=== PATIENT | female | born 1955 | race Caucasian/White ===

== ENCOUNTER 2018-03-18 00:47 | Emergency (ER) | payer MEDICARE, MEDICAID ==
--- NOTE | 2018-03-18 01:23 | EDM.PDOC ---
ED HPI GENERAL MEDICAL PROBLEM - General Chief Complaint: Trauma Stated Complaint: FALL VIA NORTH Time Seen by Provider: 03/18/18 01:13 Source of Information: Reports: Patient, EMS, RN Notes Reviewed History Limitations: Reports: No Limitations - History of Present Illness INITIAL COMMENTS - FREE TEXT/NARRATIVE: 62-year-old female presents to the emergency department via EMS services for trauma at home, she fell down 2 steps she believes she tripped and hit her head not sure if she lost consciousness she is complaining of neck pain, left shoulder pain, left foot and ankle pain. Does have a history of neck fracture in the past Treatments SHIPPING RECEIVING MANAGER: Reports: IV/IO, Other (see below) Other Treatments SHIPPING RECEIVING MANAGER: Dilaudid 0.5mg IVP Left Shoulder Pain Score (Numeric/FACES): 6 Posterior Neck Pain Score (Numeric/FACES): 4 Posterior Occipital Pain Score (Numeric/FACES): 5 Right Hip Pain Score (Numeric/FACES): 4 Left Ankle Pain Score (Numeric/FACES): 6 - Related Data Allergies Allergy/AdvReac Type Severity Reaction Status Date / Time amoxicillin Allergy Other Verified 03/18/18 01:03 bee venom protein (honey bee) Allergy Other Verified 03/18/18 01:03 cefuroxime [From Ceftin] Allergy Other Verified 03/18/18 01:03 ciprofloxacin Allergy Other Verified 03/18/18 01:03 doxorubicin [From Adriamycin] Allergy Other Verified 03/18/18 01:03 erythromycin base Allergy Other Verified 03/18/18 01:03 Penicillins Allergy Other Verified 03/18/18 01:03 sulfamethoxazole Allergy Other Verified 03/18/18 01:03 tetracycline Allergy Other Verified 03/18/18 01:03 trimethoprim [From Bactrim] Allergy Other Verified 03/18/18 01:03 Home Meds: Home Meds Acetaminophen [Tylenol Extra Strength] 1,000 mg PO TID PRN 02/18/18 [History] Albuterol [Ventolin HFA] 2 puff INH Q6H PRN 02/18/18 [History] Aspirin 81 mg PO DAILY 02/18/18 [History] Budesonide/Formoterol [Symbicort 160-4.5 MCG] 2 puff INH BID 02/18/18 [History] Calcium Carbonate/Vitamin D3 [Calcium 600 + Vit D Tablet] 1 tab PO BID 02/18/18 [History] DULoxetine [Cymbalta] 60 mg PO BID 02/18/18 [History] Diclofenac Sodium [Voltaren] 1 strip TOP QID PRN 02/18/18 [History] EPINEPHrine [Epinephrine] 0.3 mg SQ ASDIRECTED PRN 02/18/18 [History] LORazepam 0.5 mg PO TID PRN 02/18/18 [History] Lactobacill 46/B.animal/Inulin [Probiotic-10 10 Bill Cell Cap] 1 cap PO DAILY [History] Levothyroxine 75 mcg PO DAILY 02/18/18 [History] Lisinopril 20 mg PO DAILY 02/18/18 [History] Menthol/Methyl Salicylate [Icy Hot] 1 strip TOP QID PRN 02/18/18 [History] Omeprazole 20 mg PO DAILY 02/18/18 [History] Polyethylene Glycol 3350 [Miralax] 17 gm PO DAILY PRN 02/18/18 [History] Prazosin HCl [Prazosin] 2 mg PO BEDTIME 02/18/18 [History] Ranitidine HCl [Ranitidine] 150 mg PO BID 02/18/18 [History] Simvastatin [Zocor] 40 mg PO BEDTIME 02/18/18 [History] cloZAPine 75 mg PO BEDTIME 02/18/18 [History] hydrOXYzine pamoate [Hydroxyzine Pamoate] 25 mg PO TID PRN 02/18/18 [History] metFORMIN HCl [Metformin HCl] 1,000 mg PO BID 02/18/18 [History] traZODone 200 mg PO BEDTIME 02/18/18 [History] Past Medical History Other Musculoskeletal History: bilateral shoulder pain Social & Family History - Tobacco Use Smoking Status *Q: Light Tobacco Smoker Years of Tobacco use: 30 Packs/Tins Daily: 0.5 Second Hand Smoke Exposure: Yes - Caffeine Use Caffeine Use: Reports: Coffee, Soda - Recreational Drug Use Recreational Drug Use: No Review of Systems - Review of Systems Review Of Systems: See Below Constitutional: Reports: No Symptoms Eyes: Reports: No Symptoms Ears: Reports: No Symptoms Nose: Reports: No Symptoms Mouth/Throat: Reports: No Symptoms Respiratory: Reports: No Symptoms Cardiovascular: Reports: No Symptoms GI/Abdominal: Reports: No Symptoms Genitourinary: Reports: No Symptoms Musculoskeletal: Reports: Neck Pain, Shoulder Pain, Joint Pain Skin: Reports: No Symptoms Neurological: Reports: No Symptoms ED EXAM, GENERAL - Physical Exam Exam: See Below Free Text/Narrative:: Primary survey GCS of 15 airway is open patent clear lungs are clear to auscultation bilaterally cardiovascular demonstrates regular rate and rhythm S1 and S2 Secondary survey General: Female, not in any distress, GCS of 15, alert and oriented x3 HEENT: head is atraumatic normocephalic, eyes pupils equal round reactive to light, sclera clear no conjunctivitis appreciated extraocular eye movements intact. Ears tympanic membranes clear and archer landmarks and light reflex are present bilaterally canals are clear. Nose no septal deviation, nares are clear, no blood present. Mouth mucosa is moist and pink no erythema or exudate noted in soft palate, tongue is midline uvula is midline, dentition is intact. Neck: C-collar in place, c-collar was opened palpation of the neck revealed pain left paraspinal as well as spinal c-collar was then replaced Nodes: Cervical nodes subclavicular nodes nontender no palpable lymphadenopathy noted. Lungs: clear to auscultation bilaterally with symmetrical respirations, no adventitious noise appreciated. CV: Regular rate and rhythm S1 and S2 appreciated no murmurs rubs or gallops noted. Abdomen: Soft, nontender, no palpable masses or organomegaly appreciated, no distention no guarding bowel sounds are present, ]. Neuro: Cranial nerves II through XII grossly intact Skin: Warm and dry, intact Extremities: There is tenderness over the left shoulder no tenderness the right shoulder no tenderness elbows wrists bilaterally pelvic rock's is negative no tenderness knees bilaterally she is tender over the left ankle and left foot area I don't appreciate any bruising there is no erythema there is no edema noted no tenderness to the right ankle or foot pedal pulse is +2 on the left foot Course - Vital Signs Last Recorded V/S: Last Vital Signs Temp 96.2 F 03/18/18 01:39 Pulse 87 03/18/18 01:39 Resp 14 03/18/18 01:39 BP 132/83 03/18/18 01:39 Pulse Ox 97 03/18/18 01:39 - Orders/Labs/Meds Orders: Active Orders 24 hr Category Date Time Status Ankle Min 3V Lt [CR] Stat Exams 03/18/18 01:17 Taken Cervical Spine wo Cont [CT] Stat Exams 03/18/18 01:17 Taken Foot 2V Lt [CR] Stat Exams 03/18/18 01:17 Taken Head wo Cont [CT] Stat Exams 03/18/18 01:17 Taken Shoulder Comp Lt [CR] Stat Exams 03/18/18 01:17 Taken Meds: Medications Discontinued Medications Generic Name Dose Route Start Last Admin Trade Name Cristine PRN Reason Stop Dose Admin Hydromorphone HCl 0.5 mg 03/18/18 01:18 03/18/18 01:35 Dilaudid IVPUSH 03/18/18 01:19 0.5 mg ONETIME ONE Administration Ketamine HCl 10 mg 03/18/18 01:18 03/18/18 01:27 Ketalar IV 03/18/18 01:19 10 mg NOW STA Administration Departure - Departure Time of Disposition: 03:27 Disposition: Home, Self-Care 01 Condition: Good Clinical Impression: Head injury Qualifiers: Encounter type: initial encounter Qualified Code(s): S09.90XA - Unspecified injury of head, initial encounter Contusion Qualifiers: Encounter type: initial encounter Contusion area: shoulder Laterality: left Qualified Code(s): S40.012A - Contusion of left shoulder, initial encounter - Discharge Information Referrals: PCP,None [Primary Care Provider] - Forms: ED Department Discharge Additional Instructions: Use ibuprofen as needed for pain control, Please followup with your primary care provider in 3-5 days if not better, please call return to the emergency department with worsening of symptoms. - My Orders Last 24 Hours: My Active Orders 03/18/18 01:17 Ankle Min 3V Lt [CR] Stat Cervical Spine wo Cont [CT] Stat Foot 2V Lt [CR] Stat Head wo Cont [CT] Stat Shoulder Comp Lt [CR] Stat - Assessment/Plan Last 24 Hours: My Active Orders 03/18/18 01:17 Ankle Min 3V Lt [CR] Stat Cervical Spine wo Cont [CT] Stat Foot 2V Lt [CR] Stat Head wo Cont [CT] Stat Shoulder Comp Lt [CR] Stat Plan: Assessment Acuity = acute Site and laterality = bone contusion left shoulder and left ankle, head injury Etiology = secondary to a fall Manifestations = none Location of injury = Home Lab values = x-rays foot ankle shoulder I did review films myself I cannot appreciate any acute process, the official read from radiology is pending, CT scan head and neck show no acute process Plan She had good improvement with the pain control with fentanyl provided in emergency department she will use ibuprofen as needed to control pain at home follow-up with primary care 3-5 days if not better This note was dictated using [employer] voice recognition software please call with any questions on syntax or grammar.
[2018-03-18] MEDS: Ketamine 500 MG/5 ML MDV IV STA (01:27)
[2018-03-18] MEDS: HYDROmorphone 0.5 MG/0.5 ML Syringe IVPUSH ONE (01:35)
--- NOTE | 2018-03-18 08:27 | CR ---
Foot 2V Lt HISTORY: Trauma, fall FINDINGS: No acute fracture or dislocation is identified. Bony architecture and joint spaces are preserved. S oft tissues are unremarkable. IMPRESSION: No acute left foot abnormality identified.
--- NOTE | 2018-03-18 08:29 | CR ---
Shoulder Comp Lt HISTORY: Trauma, fall FINDINGS: No acute fracture or dislocation is identified. Bony architecture is preserved. There are prominent degenerative and hypertrophic changes glenohumeral joint left shoulder. AC joint is not widened. Lef t upper chest is clear. Bilateral posterior sunil and pedicle screw fusion lower cervical spine is part ially visualized. Soft tissues are unremarkable. IMPRESSION: Prominent degenerative changes can demonstrate left shoulder. No acute left shoulder abnormality is i dentified.
--- NOTE | 2018-03-18 08:30 | CR ---
Ankle Min 3V Lt HISTORY: Trauma, fall FINDINGS: No acute fracture or dislocation is identified. Bony architecture and ankle mortise are preserved. Soft tissues are unremarkable. IMPRESSION: No acute left ankle abnormality identified.
== END 2018-03-18 09:09 | disposition home or self-care (01) ==
LOC: JP.ED 00:47
DX: S09.90XA Unspecified injury of head, initial encounter (principal); S40.012A Contusion of left shoulder, initial encounter; S90.02XA Contusion of left ankle, initial encounter; F17.210 Nicotine dependence, cigarettes, uncomplicated; Z88.1 Allergy status to other antibiotic agents; Z91.030 Bee allergy status; Z88.0 Allergy status to penicillin; Z88.2 Allergy status to sulfonamides; Z79.82 Long term (current) use of aspirin; Z79.899 Other long term (current) drug therapy; W01.198A Fall on same level from slipping, tripping and stumbling with subsequent striking against other object, initial encounter
CPT/HCPCS: 70450; 72125; 73030; 73610; 73620; 96374; 96375; 99285; J1170

== ENCOUNTER 2019-04-05 05:30 | Day surgery (SDC) | payer MEDICARE, MEDICAID ==
[2019-04-05] MEDS ORDERED: Dextrose 5%-Lactated Ringers 1,000 ML IV SCH (06:30)
[2019-04-05] MEDS ORDERED: Albuterol/Ipratropium 3.0-0.5 MG/3 ML Neb Soln NEB ONE (07:00)
[2019-04-05] MEDS ORDERED: Propofol 200 MG/20 ML SDV ONE ×2 (07:07→07:29)
[2019-04-05] MEDS ORDERED: Midazolam 1 MG/ML 2 ML SDV ONE (07:07)
[2019-04-05] MEDS ORDERED: fentaNYL 100 MCG/2 ML SDV ONE (07:07)
--- NOTE | 2019-04-22 10:41 | OR ---
DATE OF PROCEDURE: 04/05/2019 SURGEON: Jann Nova MD PREOPERATIVE DIAGNOSES: 1. Epigastric pain. 2. Frequent loose bowel movements. POSTOPERATIVE DIAGNOSES: 1. Small hiatal hernia associated with mild gastroesophageal reflux disease. 2. Mild antral gastritis and duodenitis. 3. Grossly normal colonoscopy. OPERATIVE PROCEDURES: 1. Esophagogastroduodenoscopy with: a. Biopsies of esophagogastric junction for histologic evaluation. b. Biopsies of antrum for CLOtest. 2. Flexible colonoscopy with random colorectal biopsies to rule out microscopic colitis. SUMMARY: This is a 63-year-old presenting with symptoms as outlined in the attached record. Plan is to do upper and lower endoscopies with biopsies as indicated. Potential risks including bleeding and perforation were discussed, and the patient wishes to proceed. DESCRIPTION OF PROCEDURE: The patient was taken to the operating room and placed in the left lateral decubitus position. IV sedation was administered, after which the upper GI endoscope was passed orally through the length of the esophagus and into the stomach with retroflexion view of the fundus, and thereafter through the pyloric channel and into the proximal duodenum. Findings included a small hiatal hernia with some mild gastroesophageal reflux disease. There was no stricturing or gross evidence of neoplasia. Within the stomach, there were unremarkable findings in the proximal stomach. There was some mild patchy antral gastritis and duodenitis in duodenal bulb. At this point, biopsies were obtained from the antrum and sent for CLOtest for H. pylori. Multiple biopsies were obtained from esophagogastric junction, sent for histologic evaluation. Minimal bleeding from the biopsy sites was seen and the procedure then concluded. Attention was then taken to the colonoscopy. Initial digital rectal exam was performed, it was unremarkable. Colonoscope was then passed into the rectum with retroflexion revealing uncomplicated hemorrhoidal columns. Scope was eventually passed to the level of the cecum. The prep was fairly good with only a small amount of liquid stool being present. To that level, there were no abnormal findings grossly. Particularly, there were no areas of obvious colitis, diverticular disease, polyps, or other signs of neoplasia. At that point, multiple biopsies were obtained from the colon and rectum throughout its length to rule out microscopic colitis. Minimal bleeding from the biopsy sites was seen, and the procedure was then concluded. There were no evident complications. Jann Nova MD /[id number]
== END 2019-04-05 10:12 | disposition home or self-care (01) ==
LOC: JP.SDS 05:30
PROVIDERS: ATTEND Surgery
DX: K22.70 Barrett's esophagus without dysplasia (principal); K44.9 Diaphragmatic hernia without obstruction or gangrene; K21.9 Gastro-esophageal reflux disease without esophagitis; K29.70 Gastritis, unspecified, without bleeding; K29.80 Duodenitis without bleeding; R19.7 Diarrhea, unspecified; K64.9 Unspecified hemorrhoids; J44.9 Chronic obstructive pulmonary disease, unspecified; F17.200 Nicotine dependence, unspecified, uncomplicated; F32.9 Major depressive disorder, single episode, unspecified; F43.10 Post-traumatic stress disorder, unspecified; Z88.0 Allergy status to penicillin; Z88.1 Allergy status to other antibiotic agents; Z88.8 Allergy status to other drugs, medicaments and biological substances; Z91.030 Bee allergy status
CPT/HCPCS: 43239; 45380; 87081; 88305; 94640; J2250; J2704; J3010; J7042; J7620-GY

== ENCOUNTER 2019-04-06 18:16 | Emergency (ER) | payer MEDICARE, MEDICAID ==
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
== END 2019-04-06 20:43 | disposition home or self-care (01) ==
LOC: JP.ED 18:16
DX: R45.851 Suicidal ideations (principal); I10 Essential (primary) hypertension; E11.9 Type 2 diabetes mellitus without complications; E78.00 Pure hypercholesterolemia, unspecified; J44.9 Chronic obstructive pulmonary disease, unspecified; M19.90 Unspecified osteoarthritis, unspecified site; F32.9 Major depressive disorder, single episode, unspecified; E03.9 Hypothyroidism, unspecified; Z86.2 Personal history of diseases of the blood and blood-forming organs and certain disorders involving the immune mechanism; F17.210 Nicotine dependence, cigarettes, uncomplicated; Z88.1 Allergy status to other antibiotic agents; Z88.8 Allergy status to other drugs, medicaments and biological substances; Z91.030 Bee allergy status; Z79.82 Long term (current) use of aspirin; Z79.84 Long term (current) use of oral hypoglycemic drugs; Z79.899 Other long term (current) drug therapy
CPT/HCPCS: 99284

== ENCOUNTER 2019-10-10 18:08 | Emergency (ER) | payer MEDICARE, MEDICAID ==
--- NOTE | 2019-10-10 19:05 | EDM.PDOC ---
ED HPI GENERAL MEDICAL PROBLEM - General Chief Complaint: Upper Extremity Injury/Pain Stated Complaint: FEVER,INFECTED FINGER Time Seen by Provider: 10/10/19 18:50 Source of Information: Reports: Patient, Family History Limitations: Reports: No Limitations - History of Present Illness INITIAL COMMENTS - FREE TEXT/NARRATIVE: 64-year-old female who has a swollen, reddened and painful index finger on the right hand. She has eczema, gets small cracks on the palmar surface of the fingers, and a small crack in the PIP joint appears to be the source of entry for bacteria. The finger is swollen, reddened, and slightly warm but not fluctuant. She is able to move it but it is painful, she is not febrile. The erythema extends down the finger to the MP joint and slightly over the top of the hand. Onset: Gradual Duration: Day(s): (2 days) Location: Reports: Upper Extremity, Right Associated Symptoms: Reports: Other (Had a few chills earlier) - Related Data Allergies Allergy/AdvReac Type Severity Reaction Status Date / Time amoxicillin Allergy Other Verified 10/10/19 18:46 bee venom protein (honey bee) Allergy Other Verified 10/10/19 18:46 cefuroxime [From Ceftin] Allergy Other Verified 10/10/19 18:46 ciprofloxacin Allergy Other Verified 10/10/19 18:46 doxorubicin [From Adriamycin] Allergy Other Verified 10/10/19 18:46 erythromycin base Allergy Other Verified 10/10/19 18:46 Penicillins Allergy Other Verified 10/10/19 18:46 prednisone Allergy Abdominal Verified 10/10/19 18:46 Pain tetracycline Allergy Other Verified 10/10/19 18:46 trimethoprim [From Bactrim] Allergy Other Verified 10/10/19 18:46 Home Meds: Home Meds Acetaminophen [Tylenol Extra Strength] 1,000 mg PO TID PRN 02/18/18 [History] Albuterol [Ventolin HFA] 2 puff INH Q6H PRN 02/18/18 [History] Aspirin 81 mg PO DAILY 02/18/18 [History] Budesonide/Formoterol [Symbicort 160-4.5 MCG] 2 puff INH BID 02/18/18 [History] Calcium Carbonate/Vitamin D3 [Calcium 600 + Vit D Tablet] 1 tab PO BID 02/18/18 [History] DULoxetine [Cymbalta] 60 mg PO BID 02/18/18 [History] EPINEPHrine [Epinephrine] 0.3 mg SQ ASDIRECTED PRN 02/18/18 [History] LORazepam 1 mg PO BID PRN 02/18/18 [History] Lisinopril 5 mg PO DAILY 02/18/18 [History] Polyethylene Glycol 3350 [Miralax] 17 gm PO BID PRN 02/18/18 [History] Prazosin HCl [Prazosin] 7 mg PO BEDTIME 02/18/18 [History] hydrOXYzine pamoate [Hydroxyzine Pamoate] 25 mg PO TID 02/18/18 [History] metFORMIN HCl [Metformin HCl] 1,000 mg PO BID 02/18/18 [History] Levothyroxine 100 mcg PO DAILY 04/07/18 [History] Ondansetron [Zofran ODT] 4 mg PO Q6H PRN 04/07/18 [History] Simvastatin [Zocor] 40 mg PO BEDTIME 04/07/18 [History] Cyanocobalamin (Vitamin B-12) [Vitamin B-12] 500 mcg PO DAILY 04/09/18 [History] LORazepam [Ativan] 0.5 mg PO ONETIME PRN 04/09/18 [History] Albuterol/Ipratropium [Combivent Respimat] 1 puff IH QID 06/03/18 [History] busPIRone [Buspar] 30 mg PO BID 06/03/18 [History] cloZAPine 25 mg PO BEDTIME 06/03/18 [History] Albuterol/Ipratropium [DuoNeb 3.0-0.5 MG/3 ML] 3 ml INH Q4H PRN 04/01/19 [ History] Benztropine [Cogentin] 1 mg PO QPM 04/01/19 [History] Dulaglutide [Trulicity] 0.75 mg SUBCUT Q7D 04/01/19 [History] Fluticasone Propionate [Flonase] 2 spray RANDY DAILY 04/01/19 [History] Gabapentin [Neurontin] 200 mg PO TID 04/01/19 [History] Loratadine [Claritin] 10 mg PO DAILY 04/01/19 [History] Naproxen 500 mg PO BID PRN 04/01/19 [History] Nicotine [Nicoderm CQ] 1 patch TOP Q24H 04/01/19 [History] Nystatin [Nystatin Crm] 1 applic TOP TID PRN 04/01/19 [History] QUEtiapine Fumarate [Seroquel] 12.5 mg PO BID 04/01/19 [History] QUEtiapine Fumarate [Seroquel] 50 mg PO BEDTIME 04/01/19 [History] Simethicone 125 mg CHEW QID 04/01/19 [History] Cholecalciferol (Vitamin D3) [Vitamin D3] 2,000 unit PO DAILY 04/05/19 [History] Omeprazole 20 mg PO BID 04/05/19 [History] Zolpidem Tartrate [Ambien] 1 tab PO BEDTIME 10/10/19 [History] traZODone HCl [Trazodone HCl] 1 tab PO BEDTIME 10/10/19 [History] Past Medical History HEENT History: Reports: Allergic Rhinitis, Cataract Cardiovascular History: Reports: High Cholesterol, Hypertension Respiratory History: Reports: COPD Gastrointestinal History: Reports: Cholelithiasis, Chronic Constipation, Colon Polyp, Gastritis Genitourinary History: Reports: UTI, Recurrent SPECIAL EVENTS FUNDRAISER History: Reports: None Musculoskeletal History: Reports: Fracture, Neck Pain, Chronic, Osteoarthritis, Other (See Below) Other Musculoskeletal History: bilateral shoulder pain Neurological History: Reports: Brain Injury, Head Trauma Psychiatric History: Reports: Depression, Psychosis, PTSD, Schizophrenia, Suicide Attempt, Suicidal Ideation, Other (See Below) Other Psychiatric History: Boarderline Personality Disorder, Dissociative Disorder, Intellectual Disability Endocrine/Metabolic History: Reports: Diabetes, Type II, Hypothyroidism, Vitamin D Deficiency Hematologic History: Reports: Anemia, B12 Deficiency, Other (See Below) Other Hematologic History: Vitamin D Immunologic History: Reports: None Oncologic (Cancer) History: Reports: None Dermatologic History: Reports: None - Infectious Disease History Infectious Disease History: Reports: Chicken Pox, Mumps - Past Surgical History Head Surgeries/Procedures: Reports: None HEENT Surgical History: Reports: Oral Surgery Cardiovascular Surgical History: Reports: None Respiratory Surgical History: Reports: None GI Surgical History: Reports: Appendectomy, Cholecystectomy, Colonoscopy, EGD, Polypectomy Female Surgical History: Reports: Breast Biopsy Endocrine Surgical History: Reports: None Neurological Surgical History: Reports: C-Spine, Laminectomy, Scoliosis Musculoskeletal Surgical History: Reports: Shoulder Surgery Oncologic Surgical History: Reports: Biopsy of Breast Dermatological Surgical History: Reports: None Social & Family History - Family History Family Medical History: Unobtainable - Tobacco Use Smoking Status *Q: Current Every Day Smoker Years of Tobacco use: 40 Packs/Tins Daily: 0.5 - Caffeine Use Caffeine Use: Reports: Coffee Review of Systems - Review of Systems Review Of Systems: See Below Constitutional: Reports: Chills Respiratory: Reports: No Symptoms Cardiovascular: Reports: No Symptoms Skin: Reports: Erythema (Right hand) Neurological: Denies: Headache ED EXAM, GENERAL - Physical Exam Exam: See Below Exam Limited By: No Limitations General Appearance: Alert, No Apparent Distress Respiratory/Chest: No Respiratory Distress Extremities: Other (Exam is otherwise limited to the right hand. The index finger is swollen, erythematous and slightly warm diffusely to the base of the finger. Capillary refill is intact, there is no fluctuance or phelon. ) Neurological: Alert, Oriented Psychiatric: Anxious Course - Vital Signs Last Recorded V/S: Last Vital Signs Temp 98.5 F 10/10/19 18:52 Pulse 122 H 10/10/19 18:52 Resp 16 10/10/19 18:52 BP 153/76 H 10/10/19 18:52 Pulse Ox 98 10/10/19 18:52 - Orders/Labs/Meds Meds: Medications Discontinued Medications Generic Name Dose Route Start Last Admin Trade Name Cristine PRN Reason Stop Dose Admin Clindamycin Phosphate 600 mg/ 54 mls @ 100 mls/hr 10/10/19 19:00 10/10/19 19: 19 Sodium Chloride IV 10/10/19 19:32 100 mls/hr ONETIME ONE Administration - Re-Assessments/Exams Free Text/Narrative Re-Assessment/Exam: 10/10/19 19:04 An IV was started, the patient was given 600 mg of IV clindamycin and will be started on 300 mg 3 times a day. She will return if worsening despite treatment. Departure - Departure Time of Disposition: 20:11 Disposition: Home, Self-Care 01 Clinical Impression: Cellulitis of finger of right hand - Discharge Information Instructions: Cellulitis, Adult Referrals: Alden Bui RECORD CUTTER [Primary Care Provider] - Forms: ED Department Discharge Care Plan Goals: Start oral clindamycin 3 times a day as directed, starting with 1 dose tonight at bedtime. Warm compresses to the hand to increase circulation would be helpful as well as elevation of the hand. Recheck in the next 24 to 48 hours if worsening despite treatment. Sepsis Event Note - Evaluation Sepsis Screening Result: No Definite Risk - Focused Exam Vital Signs: Vital Signs Temp Pulse Resp BP Pulse Ox 10/10/19 18:52 98.5 F 122 H 16 153/76 H 98 10/10/19 18:20 98.5 F 122 H 16 153/76 H 98 Date Exam was Performed: 10/10/19 Time Exam was Performed: 21:32
== END 2019-10-10 20:11 | disposition home or self-care (01) ==
LOC: JP.ED 18:08
DX: L03.011 Cellulitis of right finger (principal); I10 Essential (primary) hypertension; J44.9 Chronic obstructive pulmonary disease, unspecified; F32.9 Major depressive disorder, single episode, unspecified; E11.9 Type 2 diabetes mellitus without complications; E03.9 Hypothyroidism, unspecified; Z79.82 Long term (current) use of aspirin; Z79.899 Other long term (current) drug therapy; Z88.1 Allergy status to other antibiotic agents; Z88.8 Allergy status to other drugs, medicaments and biological substances; Z88.0 Allergy status to penicillin
CPT/HCPCS: 96365; 99283; 99284; J3490; J7050

== ENCOUNTER 2019-10-15 10:16 | Emergency (ER) | payer MEDICARE, MEDICAID ==
--- NOTE | 2019-10-15 11:00 | EDM.PDOC ---
ED HPI GENERAL MEDICAL PROBLEM - General Chief Complaint: Upper Extremity Injury/Pain Stated Complaint: SWOLLEN R INDEX FINGER Time Seen by Provider: 10/15/19 10:40 Source of Information: Reports: Patient, Family, Old Records, RN History Limitations: Reports: No Limitations - History of Present Illness INITIAL COMMENTS - FREE TEXT/NARRATIVE: 64 yo female was seen here several days ago for an infected finger. She got a dose of IV Clindamycin 600 mg followed by 300 mg tid since then until today. They return to the ER after the clinic declined to see her and instead directed her back to the ER. Her primary is Alden Bui who she has not seen at any point in this illness. The problem began about 7 days ago, but got dramatically worse this past Friday. No fever. The problem began with a split in her skin distally on the guevara aspect of her finger. This splitting of her skin happens often. She is diabetic with apparent good glycemic control even now with her infection. She is really not any better or significantly worse since beginning her clindamycin. She has many presumed antibiotic allergies. Onset: Gradual Onset Date: 10/08/19 Duration: Day(s): (7), Constant Location: Reports: Upper Extremity, Right (index finger) Quality: Reports: Ache Severity: Moderate Improves with: Reports: Rest Worsens with: Reports: Movement Context: Reports: Other (see HPI) Associated Symptoms: Reports: No Other Symptoms Treatments REGIONAL BUSINESS DEVELOPMENT MANAGER: Reports: Other (see below) (See HPI) 8 Pain Score (Numeric/FACES): 10 - Related Data Allergies Allergy/AdvReac Type Severity Reaction Status Date / Time amoxicillin Allergy Other Verified 10/15/19 10:29 bee venom protein (honey bee) Allergy Other Verified 10/15/19 10:29 cefuroxime [From Ceftin] Allergy Other Verified 10/15/19 10:29 ciprofloxacin Allergy Other Verified 10/15/19 10:29 doxorubicin [From Adriamycin] Allergy Other Verified 10/15/19 10:29 erythromycin base Allergy Other Verified 10/15/19 10:29 Penicillins Allergy Other Verified 10/15/19 10:29 prednisone Allergy Abdominal Verified 10/15/19 10:29 Pain tetracycline Allergy Other Verified 10/15/19 10:29 trimethoprim [From Bactrim] Allergy Other Verified 10/15/19 10:29 Home Meds: Home Meds Acetaminophen [Tylenol Extra Strength] 1,000 mg PO TID PRN 02/18/18 [History] Albuterol [Ventolin HFA] 2 puff INH Q6H PRN 02/18/18 [History] Aspirin 81 mg PO DAILY 02/18/18 [History] Budesonide/Formoterol [Symbicort 160-4.5 MCG] 2 puff INH BID 02/18/18 [History] Calcium Carbonate/Vitamin D3 [Calcium 600 + Vit D Tablet] 1 tab PO BID 02/18/18 [History] DULoxetine [Cymbalta] 60 mg PO BID 02/18/18 [History] EPINEPHrine [Epinephrine] 0.3 mg SQ ASDIRECTED PRN 02/18/18 [History] LORazepam 1 mg PO BID PRN 02/18/18 [History] Lisinopril 5 mg PO DAILY 02/18/18 [History] Polyethylene Glycol 3350 [Miralax] 17 gm PO BID PRN 02/18/18 [History] Prazosin HCl [Prazosin] 7 mg PO BEDTIME 02/18/18 [History] hydrOXYzine pamoate [Hydroxyzine Pamoate] 25 mg PO TID 02/18/18 [History] metFORMIN HCl [Metformin HCl] 1,000 mg PO BID 02/18/18 [History] Levothyroxine 100 mcg PO DAILY 04/07/18 [History] Ondansetron [Zofran ODT] 4 mg PO Q6H PRN 04/07/18 [History] Simvastatin [Zocor] 40 mg PO BEDTIME 04/07/18 [History] Cyanocobalamin (Vitamin B-12) [Vitamin B-12] 500 mcg PO DAILY 04/09/18 [History] LORazepam [Ativan] 0.5 mg PO ONETIME PRN 04/09/18 [History] Albuterol/Ipratropium [Combivent Respimat] 1 puff IH QID 06/03/18 [History] busPIRone [Buspar] 30 mg PO BID 06/03/18 [History] cloZAPine 25 mg PO BEDTIME 06/03/18 [History] Albuterol/Ipratropium [DuoNeb 3.0-0.5 MG/3 ML] 3 ml INH Q4H PRN 04/01/19 [ History] Benztropine [Cogentin] 1 mg PO QPM 04/01/19 [History] Dulaglutide [Trulicity] 0.75 mg SUBCUT Q7D 04/01/19 [History] Fluticasone Propionate [Flonase] 2 spray RANDY DAILY 04/01/19 [History] Gabapentin [Neurontin] 200 mg PO TID 04/01/19 [History] Loratadine [Claritin] 10 mg PO DAILY 04/01/19 [History] Naproxen 500 mg PO BID PRN 04/01/19 [History] Nicotine [Nicoderm CQ] 1 patch TOP Q24H 04/01/19 [History] Nystatin [Nystatin Crm] 1 applic TOP TID PRN 04/01/19 [History] QUEtiapine Fumarate [Seroquel] 12.5 mg PO BID 04/01/19 [History] QUEtiapine Fumarate [Seroquel] 50 mg PO BEDTIME 04/01/19 [History] Simethicone 125 mg CHEW QID 04/01/19 [History] Cholecalciferol (Vitamin D3) [Vitamin D3] 2,000 unit PO DAILY 04/05/19 [History] Omeprazole 20 mg PO BID 04/05/19 [History] Zolpidem Tartrate [Ambien] 1 tab PO BEDTIME 10/10/19 [History] traZODone HCl [Trazodone HCl] 1 tab PO BEDTIME 10/10/19 [History] clindamycin HCL [Cleocin] 1 tab PO TID 10/15/19 [History] Past Medical History HEENT History: Reports: Allergic Rhinitis, Cataract Cardiovascular History: Reports: High Cholesterol, Hypertension Respiratory History: Reports: COPD Gastrointestinal History: Reports: Cholelithiasis, Chronic Constipation, Colon Polyp, Gastritis Genitourinary History: Reports: UTI, Recurrent STORE CLERK CHECKER History: Reports: None Musculoskeletal History: Reports: Fracture, Neck Pain, Chronic, Osteoarthritis, Other (See Below) Other Musculoskeletal History: bilateral shoulder pain Neurological History: Reports: Brain Injury, Head Trauma Psychiatric History: Reports: Depression, Psychosis, PTSD, Schizophrenia, Suicide Attempt, Suicidal Ideation, Other (See Below) Other Psychiatric History: Boarderline Personality Disorder, Dissociative Disorder, Intellectual Disability Endocrine/Metabolic History: Reports: Diabetes, Type II, Hypothyroidism, Vitamin D Deficiency Hematologic History: Reports: Anemia, B12 Deficiency, Other (See Below) Other Hematologic History: Vitamin D Immunologic History: Reports: None Oncologic (Cancer) History: Reports: None Dermatologic History: Reports: None - Infectious Disease History Infectious Disease History: Reports: Chicken Pox, Mumps - Past Surgical History Head Surgeries/Procedures: Reports: None HEENT Surgical History: Reports: Oral Surgery Cardiovascular Surgical History: Reports: None Respiratory Surgical History: Reports: None GI Surgical History: Reports: Appendectomy, Cholecystectomy, Colonoscopy, EGD, Polypectomy Female Surgical History: Reports: Breast Biopsy Endocrine Surgical History: Reports: None Neurological Surgical History: Reports: C-Spine, Laminectomy, Scoliosis Musculoskeletal Surgical History: Reports: Shoulder Surgery Oncologic Surgical History: Reports: Biopsy of Breast Dermatological Surgical History: Reports: None Social & Family History - Family History Family Medical History: Unobtainable - Tobacco Use Smoking Status *Q: Current Every Day Smoker Years of Tobacco use: 30 Packs/Tins Daily: 0.5 - Caffeine Use Caffeine Use: Reports: Coffee Review of Systems - Review of Systems Review Of Systems: See Below Constitutional: Reports: No Symptoms Skin: Reports: Erythema (R index finger extending into the palm), Wound (small on the guevara aspect of the R index finger distally.) Neurological: Reports: No Symptoms ED EXAM, GENERAL - Physical Exam Exam: See Below Exam Limited By: No Limitations General Appearance: Alert, WD/WN, No Apparent Distress Extremities: Pedal Edema (R index finger slightly swollen), Limited Range of Motion (R index finger), Increased Warmth (R index finger), Redness (R index finger extending into the palm) Neurological: Alert, Oriented, CN II-XII Intact, Normal Cognition, No Motor/ Sensory Deficits Psychiatric: Normal Affect, Normal Mood Course - Vital Signs Text/Narrative:: [facility] records show H/H of 9.5/30.3 on 09/29/2019 Case discussed with the orthopedic PA management liaison at [facility] @ 12:15p (Lora Byers), Dr. Gan(hospitalist) accepts @ 12:30p Last Recorded V/S: Last Vital Signs Temp 35.7 C L 10/15/19 10:38 Pulse 100 10/15/19 10:38 Resp 14 10/15/19 10:38 BP 118/73 10/15/19 10:38 Pulse Ox 99 04/10/20 10:38 - Orders/Labs/Meds Labs: Laboratory Tests 10/15/19 10/15/19 10/15/19 Range/Units 11:10 11:10 11:10 WBC 10.2 (4.5-11.0) K/uL RBC 3.32 (3.30-5.50) M/uL Hgb 8.3 L (12.0-15.0) g/dL Hct 26.9 L (36.0-48.0) % MCV 81 (80-98) fL MCH 25 L (27-31) pg MCHC 31 L (32-36) % Plt Count 331 (150-400) K/uL ESR 90 H (0-25) mm/hr Sodium 137 L (140-148) mmol/L Potassium 4.4 (3.6-5.2) mmol/L Chloride 102 (100-108) mmol/L Carbon Dioxide 25 (21-32) mmol/L Anion Gap 14.4 H (5.0-14.0) mmol/L BUN 11 (7-18) mg/dL Creatinine 0.8 (0.6-1.0) mg/dL Est Cr Clr Drug Dosing 61.35 mL/min Estimated GFR (MDRD) > 60 (>60) Glucose 144 H (74-106) mg/dL Calcium 9.1 (8.5-10.1) mg/dL Meds: Medications Discontinued Medications Generic Name Dose Route Start Last Admin Trade Name Freq PRN Reason Stop Dose Admin Clindamycin Phosphate 900 mg/ 106 mls @ 212 mls/hr 10/15/19 12:30 10/15/19 12 :38 Sodium Chloride IV 10/15/19 12:59 212 mls/hr ONETIME ONE Administration - Radiology Interpretation Free Text/Narrative:: R index finger X-ray-soft tissue swelling only Departure - Departure Time of Disposition: 14:20 Disposition: DC/Tfer to Acute Hospital 02 Condition: Fair Clinical Impression: Finger infection Anemia Qualifiers: Anemia type: unspecified type Qualified Code(s): D64.9 - Anemia, unspecified - Discharge Information *PRESCRIPTION DRUG MONITORING PROGRAM REVIEWED*: No *COPY OF PRESCRIPTION DRUG MONITORING REPORT IN PATIENT MUNIR: No Instructions: Cellulitis, Adult, [id number] Referrals: PCP,None [Primary Care Provider] - Forms: ED Department Discharge Additional Instructions: Go to [facility] to be a direct admission. If you eat or drink anything limit it to clear liquids only. Sepsis Event Note - Evaluation Sepsis Screening Result: No Definite Risk - Focused Exam Vital Signs: Vital Signs Temp Pulse Resp BP Pulse Ox 10/15/19 10:38 35.7 C L 100 14 118/73 99 Date Exam was Performed: 10/15/19 Time Exam was Performed: 17:59
--- NOTE | 2019-10-15 11:42 | CR ---
Fingers Second Digit Rt CLINICAL HISTORY: Osteomyelitis FINDINGS: There is generalized soft tissue swelling of the second digit. No definite bony erosion or lytic lesion is identified. There is some bony overlap due to limited ability to position the patient. IMPRESSION: Moderate soft tissue swelling No definite evidence of osteomyelitis Limited study
[2019-10-15] MEDS ORDERED: Clindamycin Phosphate 900 MG in Sodium Chloride 0.9% 100 ML IV ONE ×2 (12:22→12:30)
== END 2019-10-15 14:21 ==
LOC: JP.ED 10:16
DX: L08.9 Local infection of the skin and subcutaneous tissue, unspecified (principal); D64.9 Anemia, unspecified; I10 Essential (primary) hypertension; E11.9 Type 2 diabetes mellitus without complications; E78.00 Pure hypercholesterolemia, unspecified; J44.9 Chronic obstructive pulmonary disease, unspecified; M19.90 Unspecified osteoarthritis, unspecified site; F32.9 Major depressive disorder, single episode, unspecified; E03.9 Hypothyroidism, unspecified; Z79.82 Long term (current) use of aspirin; Z79.84 Long term (current) use of oral hypoglycemic drugs; Z79.899 Other long term (current) drug therapy; Z88.1 Allergy status to other antibiotic agents; Z91.030 Bee allergy status; Z88.0 Allergy status to penicillin; Z88.8 Allergy status to other drugs, medicaments and biological substances
CPT/HCPCS: 36415; 73140; 80048; 82272; 85027; 85651; 99284; J3490; J7050

== ENCOUNTER 2020-07-23 17:04 | Emergency (ER) | payer MEDICARE ==
--- NOTE | 2020-07-23 17:42 | EDM.PDOC ---
<OfficerSteve - Last Filed: 07/23/20 17:38> ED HPI GENERAL MEDICAL PROBLEM - General Chief Complaint: Laceration Stated Complaint: FELL HIT HEAD, SAW FLASHES Time Seen by Provider: 07/23/20 17:27 Source of Information: Reports: Patient, Family, Old Records, RN Notes Reviewed History Limitations: Reports: No Limitations - History of Present Illness INITIAL COMMENTS - FREE TEXT/NARRATIVE: 65-year-old female presents emergency department today following trauma at home she slipped and fell she ended up landing on her left shoulder, she also had a head injury during this fall she has bruising over her left eye she is also complaining of neck pain. She is currently being evaluated with your primary care falls had fallen last week as well complaining of neck pain at the time. Plain films done in the clinic by primary care requesting CT of the spine she does have a history of spinal surgery does have significant amount of hardware in place as well. She denies any loss of consciousness no nausea or vomiting no shortness of breath or chest pain Left Head Pain Score (Numeric/FACES): 8 - Related Data Allergies Allergy/AdvReac Type Severity Reaction Status Date / Time amoxicillin Allergy Other Verified 07/23/20 17:30 bee venom protein (honey bee) Allergy Other Verified 07/23/20 17:30 cefuroxime [From Ceftin] Allergy Other Verified 07/23/20 17:30 ciprofloxacin Allergy Other Verified 07/23/20 17:30 doxorubicin [From Adriamycin] Allergy Other Verified 07/23/20 17:30 doxycycline Allergy Rash Verified 07/23/20 17:30 erythromycin base Allergy Other Verified 07/23/20 17:30 Penicillins Allergy Other Verified 07/23/20 17:30 prednisone Allergy Abdominal Verified 07/23/20 17:30 Pain tetracycline Allergy Other Verified 07/23/20 17:30 trimethoprim [From Bactrim] Allergy Other Verified 07/23/20 17:30 Home Meds: Home Meds Acetaminophen [Tylenol Extra Strength] 1,000 mg PO TID PRN 02/18/18 [History] Aspirin 81 mg PO DAILY 02/18/18 [History] Budesonide/Formoterol [Symbicort 160-4.5 MCG] 2 puff INH BID 02/18/18 [History] Calcium Carbonate/Vitamin D3 [Calcium 600 + Vit D Tablet] 1 tab PO BID 02/18/18 [History] DULoxetine [Cymbalta] 60 mg PO BID 02/18/18 [History] EPINEPHrine [Epinephrine] 0.3 mg SQ ASDIRECTED PRN 02/18/18 [History] Prazosin HCl [Prazosin] 5 mg PO BEDTIME 02/18/18 [History] hydrOXYzine pamoate [Hydroxyzine Pamoate] 50 mg PO TID 02/18/18 [History] metFORMIN HCl [Metformin HCl] 1,000 mg PO BID 02/18/18 [History] polyethylene glycoL 3350 [Miralax] 17 gm PO DAILY 02/18/18 [History] Levothyroxine 100 mcg PO DAILY 04/07/18 [History] Ondansetron [Zofran ODT] 4 mg PO Q8H PRN 04/07/18 [History] Simvastatin [Zocor] 40 mg PO BEDTIME 04/07/18 [History] Cyanocobalamin (Vitamin B-12) [Vitamin B-12] 500 mcg PO DAILY 04/09/18 [History] Albuterol/Ipratropium [Combivent Respimat] 1 puff IH QID PRN 06/03/18 [History] busPIRone [Buspar] 30 mg PO BID 06/03/18 [History] cloZAPine 75 mg PO BEDTIME 06/03/18 [History] Benztropine [Cogentin] 1 mg PO QPM 04/01/19 [History] Dulaglutide [Trulicity] 0.75 mg SUBCUT Q7D 04/01/19 [History] Fluticasone Propionate [Flonase] 2 spray RANDY DAILY 04/01/19 [History] Gabapentin [Neurontin] 900 mg PO TID 04/01/19 [History] Naproxen 500 mg PO BID PRN 04/01/19 [History] Nicotine [Nicoderm CQ] 1 patch TOP Q24H 04/01/19 [History] Nystatin [Nystatin Crm] 1 applic TOP TID PRN 04/01/19 [History] Simethicone 125 mg CHEW QID 04/01/19 [History] Cholecalciferol (Vitamin D3) [Vitamin D3] 2,000 unit PO DAILY 04/05/19 [History] Omeprazole 20 mg PO BID 04/05/19 [History] traZODone HCl [Trazodone HCl] 100 mg PO BEDTIME 10/10/19 [History] ARIPiprazole [Abilify] 5 mg PO DAILY 10/26/19 [History] Diclofenac Sodium [Voltaren 1% Gel] 4 gm TOP QID PRN 10/26/19 [History] Ferrous Sulfate 325 mg PO DAILY 10/26/19 [History] Loperamide [Imodium AD] 2 mg PO ASDIRECTED PRN 10/26/19 [History] Meclizine HCl [Travel Sickness] 12.5 mg PO TID PRN 10/26/19 [History] methocarbamoL [Robaxin] 500 mg PO TID PRN 10/26/19 [History] QUEtiapine [SEROquel] 12.5 mg PO TID 07/23/20 [History] Past Medical History HEENT History: Reports: Allergic Rhinitis, Cataract Cardiovascular History: Reports: High Cholesterol, Hypertension Respiratory History: Reports: COPD Gastrointestinal History: Reports: Cholelithiasis, Chronic Constipation, Colon Polyp, Gastritis Genitourinary History: Reports: UTI, Recurrent PRODUCTION REPAIRER History: Reports: None Musculoskeletal History: Reports: Fracture, Neck Pain, Chronic, Osteoarthritis, Other (See Below) Other Musculoskeletal History: bilateral shoulder pain Neurological History: Reports: Brain Injury, Head Trauma Psychiatric History: Reports: Depression, Psychosis, PTSD, Schizophrenia, Suicide Attempt, Suicidal Ideation, Other (See Below) Other Psychiatric History: Boarderline Personality Disorder, Dissociative Disorder, Intellectual Disability Endocrine/Metabolic History: Reports: Diabetes, Type II, Hypothyroidism, Vitamin D Deficiency Hematologic History: Reports: Anemia, B12 Deficiency, Other (See Below) Other Hematologic History: Vitamin D Immunologic History: Reports: None Oncologic (Cancer) History: Reports: None Dermatologic History: Reports: None - Infectious Disease History Infectious Disease History: Reports: Chicken Pox, Mumps - Past Surgical History Head Surgeries/Procedures: Reports: None HEENT Surgical History: Reports: Oral Surgery Cardiovascular Surgical History: Reports: None Respiratory Surgical History: Reports: None GI Surgical History: Reports: Appendectomy, Cholecystectomy, Colonoscopy, EGD, Polypectomy Female Surgical History: Reports: Breast Biopsy Endocrine Surgical History: Reports: None Neurological Surgical History: Reports: C-Spine, Laminectomy, Scoliosis Musculoskeletal Surgical History: Reports: Shoulder Surgery Oncologic Surgical History: Reports: Biopsy of Breast Dermatological Surgical History: Reports: None Social & Family History - Family History Family Medical History: Unobtainable - Caffeine Use Caffeine Use: Reports: Coffee ED ROS GENERAL - Review of Systems Review Of Systems: See Below Constitutional: Reports: No Symptoms HEENT: Reports: No Symptoms Respiratory: Reports: No Symptoms Cardiovascular: Reports: No Symptoms GI/Abdominal: Reports: No Symptoms Musculoskeletal: Reports: Neck Pain, Shoulder Pain ED EXAM, SKIN/RASH Exam: See Below Text/Narrative:: Primary survey airway is open patent and clear lungs are clear to auscultation bilaterally and cardiovascular intact regular rate and rhythm S1-S2 GCS 15 Secondary survey General: Female, not in any distress, alert and oriented x3 HEENT: head is ecchymosis edema are appreciated above the left orbit normocephalic, eyes pupils equal round reactive to light, sclera clear no conjunctivitis appreciated extraocular eye movements intact. Ears tympanic membranes clear and archer landmarks and light reflex are present bilaterally canals are clear. Nose no septal deviation, nares are clear, no blood present. Mouth mucosa is moist and pink no erythema or exudate noted in soft palate, tongue is midline uvula is midline, dentition is intact. Positive posterior midline C-spine tenderness NO evidence of intoxication GCS > 14 No focal neurological deficit NO distracting injury Nodes: Cervical nodes subclavicular nodes nontender no palpable lymphadenopathy noted. Lungs: clear to auscultation bilaterally with symmetrical respirations, no adventitious noise appreciated. CV: Regular rate and rhythm S1 and S2 appreciated no murmurs rubs or gallops noted. Abdomen: Soft, nontender, no palpable masses or organomegaly appreciated, no distention no guarding bowel sounds are present, . Examination of the shoulder I do not appreciate any erythema there is no deformity there is no edema noted she has full range of motion of the shoulder there is no specific point tenderness, no tenderness right shoulder no tenderness elbows wrists bilaterally no tenderness on pelvic rocks no tenderness to knees or ankles bilaterally Departure - Departure Disposition: Home, Self-Care 01 Clinical Impression: Recurrent falls, Posterior neck pain Contusion of left eyebrow Qualifiers: Encounter type: initial encounter Qualified Code(s): S00.12XA - Contusion of left eyelid and periocular area, initial encounter Laceration of eyebrow, left Qualifiers: Encounter type: initial encounter Qualified Code(s): S01.112A - Laceration without foreign body of left eyelid and periocular area, initial encounter - Discharge Information Instructions: Facial or Scalp Contusion, [id number], Facial Laceration, [id number], Fall Prevention in the Home, Adult Referrals: Alden Bui NP [Primary Care Provider] - Forms: ED Department Discharge Care Plan Goals: I recommend the patient follow-up with her primary care provider for further management. Patient is scheduled to follow-up with a pharmacist on Friday to review her medications and try to simplify her regime. Sepsis Event Note (ED) - Evaluation Sepsis Screening Result: No Definite Risk <Bobby Mchugh - Last Filed: 07/23/20 19:10> Course - Vital Signs Last Recorded V/S: Last Vital Signs Temp 36.1 C 07/23/20 17:28 Pulse 89 07/23/20 17:28 Resp 16 07/23/20 17:28 BP 131/85 07/23/20 17:28 Pulse Ox 98 07/23/20 17:28 - Orders/Labs/Meds Orders: Active Orders 24 hr Category Date Time Status Shoulder Comp Lt [CR] Stat Exams 07/23/20 17:39 Taken - Re-Assessments/Exams Free Text/Narrative Re-Assessment/Exam: 07/23/20 19:05 I assumed care of the patient from Officer at 1800 hrs., end of his shift. At this time are awaiting for the patient to complete her imaging including a shoulder x-ray, CT of the head, CT of the facial bones, and CT of the cervical spine. I reviewed the reports on the imaging which essentially shows no acute changes when compared to previous imaging in 2018. Patient does have anterior sub luxation of C2 on C3 with Ness rods from C3-C7. She does have a fracture in the one screw on C7 which remains unchanged from 2018. CT of the facial bones show no acute abnormalities. CT of the head shows a calcified meningioma the remains unchanged since 2018. X-rays of the shoulder show a reverse replacement without any change in the appliance. After reviewing the imaging, the patient remained stable. There are no addressable acute issues and the patient is scheduled to see the pharmacist to go over her medications on Friday to try to simplify her regimen. It is likely that dizziness may be causing her recurrent falls. I wrote commend that they follow-up with their primary care provider early next week for further instructions and management of care. Indications return to the ED were discussed and patient was discharged in satisfactory condition. Departure - Departure Time of Disposition: 19:07 Condition: Good Sepsis Event Note (ED) - Focused Exam Vital Signs: Vital Signs Temp Pulse Resp BP Pulse Ox 07/23/20 17:28 36.1 C 89 16 131/85 98 07/23/20 17:22 36.1 C 89 16 131/85 98
--- NOTE | 2020-07-23 18:45 | CRLCT ---
INDICATION: Fall. Trauma. Bruising over left eye. Vertebral tenderness. TECHNIQUE: CT cervical spine without contrast. COMPARISON: 03/18/2018. FINDINGS: Grade 1 anterolisthesis of C2 on C3 is unchanged from prior exam. Laminectomy changes from C3 through C6 similar to prior. Posterior fusion of C3 through C7, with screws and posterior stabilization rods, similar to prior. Persistent lucency about C7 screws suggesting loosening, similar to prior. Multilevel disc height loss and osteophyte formation, similar to prior. Multilevel facet arthropathy is again noted. No acute fracture. Extraspinal findings: Prevertebral soft tissues, visualized airway, and visualized lungs are unremarkable. IMPRESSION: : 1. Posterior fusion hardware, with lucency of C7 screws, similar to prior exam. 2. Chronic C2 on C3 anterolisthesis is unchanged. 3. No acute osseous abnormality identified. Please note that all CT scans at this facility use dose modulation, iterative reconstruction, and/or weight-based dosing when appropriate to reduce radiation dose to as low as reasonably achievable. Dictated by Elvis Murillo MD @ Jul 23 2020 6:33PM Signed by Dr. Elvis Murillo @ Jul 23 2020 6:44PM
--- NOTE | 2020-07-23 18:51 | CRLCT ---
Indication: Fall trauma bruising over left eye. Technique: Noncontrast head CT Comparison: Head CT 03/18/2018 Findings: Densely calcified mass arising from the high left posterior parietal dura measuring 2.4 centimeters unchanged from prior study most likely reflecting calcified meningioma Axial noncontrast images through the brain parenchyma demonstrates no acute intracranial hemorrhage or mass. No midline shift. No abnormal acute extra-axial air fluid collections are seen. Left periorbital soft tissue swelling. Impression: 1. No acute intracranial hemorrhage or mass. 2. Densely calcified mass off the high left posterior parietal dura unchanged likely reflecting a calcified meningioma. 3. Left periorbital soft tissue swelling. Please note that all CT scans at this facility use dose modulation, iterative reconstruction, and/or weight-based dosing when appropriate to reduce radiation dose to as low as reasonably achievable. Dictated by Jacinda Rene MD @ Jul 23 2020 6:45PM Signed by Dr. Jacinda Rene @ Jul 23 2020 6:49PM
--- NOTE | 2020-07-23 19:00 | CRLCT ---
Indication: Fall trauma Technique: Facial bone CT scan Comparison: Cervical spine CT scan 07/23/2020 Findings: Nasal septum deviated towards the left. Ostiomeatal complexes are patent. Paranasal sinuses appear clear. Left periorbital soft tissue swelling. Orbital globe appear intact. No facial bone fracture. Cervical fusion change. Anterior subluxation of C2 on C3 is unchanged from 2018 with 5 millimeters displacement. Mild to moderate loss of the disc height anteriorly this is all unchanged. Impression: 1. Left periorbital soft tissue swelling. No facial bone fracture. Orbit and globe are intact. 2. Anterior subluxation of C2 on C3, unchanged in 2018. Please note that all CT scans at this facility use dose modulation, iterative reconstruction, and/or weight-based dosing when appropriate to reduce radiation dose to as low as reasonably achievable. Dictated by Jacinda Rene MD @ Jul 23 2020 6:49PM Signed by Dr. Jacinda Rene @ Jul 23 2020 6:58PM
--- NOTE | 2020-07-24 10:10 | CR ---
Shoulder Comp Lt CLINICAL HISTORY: Pain, fall FINDINGS: Patient has a reverse shoulder arthroplasty. Components appear well seated. No fractures seen. There is spurring at the AC joint. IMPRESSION: Reverse shoulder arthroplasty appears intact
== END 2020-07-23 19:13 | disposition home or self-care (01) ==
LOC: JP.ED 17:04
DX: S01.112A Laceration without foreign body of left eyelid and periocular area, initial encounter (principal); M54.2 Cervicalgia; G89.18 Other acute postprocedural pain; I10 Essential (primary) hypertension; E78.00 Pure hypercholesterolemia, unspecified; J44.9 Chronic obstructive pulmonary disease, unspecified; E11.9 Type 2 diabetes mellitus without complications; E03.9 Hypothyroidism, unspecified; Z88.0 Allergy status to penicillin; Z91.030 Bee allergy status; Z88.1 Allergy status to other antibiotic agents; Z88.2 Allergy status to sulfonamides; Z79.82 Long term (current) use of aspirin; Z79.84 Long term (current) use of oral hypoglycemic drugs; Z79.899 Other long term (current) drug therapy; W01.0XXA Fall on same level from slipping, tripping and stumbling without subsequent striking against object, initial encounter
CPT/HCPCS: 70450; 70486; 72125; 73030-26-LT; 73030-LT; 99283; 99284-25

== ENCOUNTER 2020-12-22 23:41 | Emergency (ER) | payer MEDICARE ==
--- NOTE | 2020-12-23 00:07 | EDM.PDOC ---
ED HPI GENERAL MEDICAL PROBLEM - General Chief Complaint: General Stated Complaint: HIGH BLOOD PRESSURE Time Seen by Provider: 12/22/20 23:56 Source of Information: Reports: Patient, Other (Caregiver) History Limitations: Reports: Other (Most information was retrieved by the caregiver.) - History of Present Illness INITIAL COMMENTS - FREE TEXT/NARRATIVE: Tanvi is a 65-year-old female who lives in a alf who is brought in by her caregiver for evaluation of elevated blood pressure. The caregivers been taking her blood pressure about every 20 minutes this evening with pressures ranging from 180s over 100s to the most recent being 150/84. Patient does have a history for hypertension and is on prazosin at bedtime for this. The caregiver brings in her blood pressures. Her first blood pressure was 148/99 taken at 2130 hrs. before the patient took her prazosin. Her second blood pressure was 153/102 which was taken at 2215. Her third blood pressure was 156/106 which was taken at 2230. Her blood pressure was 166/110 which was taken at 2240. Her fifth blood pressure was 145/95 which was taken at 2255. Her final blood pressure was 150/94 which was taken at 2300 hrs. The nurse coordinator for the alf felt the patient should be brought in for evaluation. The patient is currently undergoing neurologic evaluation for neurologic changes likely due to her neuroleptic medications. She saw Dr. Torres who will be performing a number of tests to evaluate for her neurologic changes. The patient states that she has a fullness feeling in her head but denies any headache, acute vision changes, acute neurologic changes like weakness, numbness or tingling. - Related Data Allergies Allergy/AdvReac Type Severity Reaction Status Date / Time amoxicillin Allergy Other Verified 12/23/20 00:03 bee venom protein (honey bee) Allergy Other Verified 12/23/20 00:03 cefuroxime [From Ceftin] Allergy Other Verified 12/23/20 00:03 ciprofloxacin Allergy Other Verified 12/23/20 00:03 doxorubicin [From Adriamycin] Allergy Other Verified 12/23/20 00:03 doxycycline Allergy Rash Verified 12/23/20 00:03 erythromycin base Allergy Other Verified 12/23/20 00:03 Penicillins Allergy Other Verified 12/23/20 00:03 prednisone Allergy Abdominal Verified 12/23/20 00:03 Pain tetracycline Allergy Other Verified 12/23/20 00:03 trimethoprim [From Bactrim] Allergy Other Verified 12/23/20 00:03 Home Meds: Home Meds Acetaminophen [Tylenol Extra Strength] 1,000 mg PO TID PRN 02/18/18 [History] Aspirin 81 mg PO DAILY 02/18/18 [History] Budesonide/Formoterol [Symbicort 160-4.5 MCG] 2 puff INH BID 02/18/18 [History] Calcium Carbonate/Vitamin D3 [Calcium 600 + Vit D Tablet] 1 tab PO BID 02/18/18 [History] DULoxetine [Cymbalta] 60 mg PO BID 02/18/18 [History] EPINEPHrine [Epinephrine] 0.3 mg SQ ASDIRECTED PRN 02/18/18 [History] Prazosin HCl [Prazosin] 5 mg PO BEDTIME 02/18/18 [History] hydrOXYzine pamoate [Hydroxyzine Pamoate] 50 mg PO TID 02/18/18 [History] metFORMIN HCl [Metformin HCl] 1,000 mg PO BID 02/18/18 [History] polyethylene glycoL 3350 [Miralax] 17 gm PO DAILY 02/18/18 [History] Levothyroxine 100 mcg PO DAILY 04/07/18 [History] Ondansetron [Zofran ODT] 4 mg PO Q8H PRN 04/07/18 [History] Simvastatin [Zocor] 40 mg PO BEDTIME 04/07/18 [History] Cyanocobalamin (Vitamin B-12) [Vitamin B-12] 500 mcg PO DAILY 04/09/18 [History] Albuterol/Ipratropium [Combivent Respimat] 1 puff IH QID PRN 06/03/18 [History] busPIRone [Buspar] 30 mg PO BID 06/03/18 [History] cloZAPine 75 mg PO BEDTIME 06/03/18 [History] Benztropine [Cogentin] 1 mg PO QPM 04/01/19 [History] Dulaglutide [Trulicity] 0.75 mg SUBCUT Q7D 04/01/19 [History] Fluticasone Propionate [Flonase] 2 spray RANDY DAILY 04/01/19 [History] Gabapentin [Neurontin] 900 mg PO TID 04/01/19 [History] Naproxen 500 mg PO BID PRN 04/01/19 [History] Nicotine [Nicoderm CQ] 1 patch TOP Q24H 04/01/19 [History] Nystatin [Nystatin Crm] 1 applic TOP TID PRN 04/01/19 [History] Simethicone 125 mg CHEW QID 04/01/19 [History] Cholecalciferol (Vitamin D3) [Vitamin D3] 2,000 unit PO DAILY 04/05/19 [History] Omeprazole 20 mg PO BID 04/05/19 [History] traZODone HCl [Trazodone HCl] 100 mg PO BEDTIME 10/10/19 [History] ARIPiprazole [Abilify] 5 mg PO DAILY 10/26/19 [History] Diclofenac Sodium [Voltaren 1% Gel] 4 gm TOP QID PRN 10/26/19 [History] Ferrous Sulfate 325 mg PO DAILY 10/26/19 [History] Loperamide [Imodium AD] 2 mg PO ASDIRECTED PRN 10/26/19 [History] Meclizine HCl [Travel Sickness] 12.5 mg PO TID PRN 10/26/19 [History] methocarbamoL [Robaxin] 500 mg PO TID PRN 10/26/19 [History] QUEtiapine [SEROquel] 12.5 mg PO TID 07/23/20 [History] amLODIPine [Norvasc] 5 mg PO DAILY 30 Days #30 tab 12/23/20 [Rx] Past Medical History HEENT History: Reports: Allergic Rhinitis, Cataract Cardiovascular History: Reports: High Cholesterol, Hypertension Respiratory History: Reports: COPD Gastrointestinal History: Reports: Cholelithiasis, Chronic Constipation, Colon Polyp, Gastritis Genitourinary History: Reports: UTI, Recurrent [employer] History: Reports: None Musculoskeletal History: Reports: Fracture, Neck Pain, Chronic, Osteoarthritis, Other (See Below) Other Musculoskeletal History: bilateral shoulder pain Neurological History: Reports: Brain Injury, Head Trauma Psychiatric History: Reports: Depression, Psychosis, PTSD, Schizophrenia, Suicide Attempt, Suicidal Ideation, Other (See Below) Other Psychiatric History: Boarderline Personality Disorder, Dissociative Disorder, Intellectual Disability Endocrine/Metabolic History: Reports: Diabetes, Type II, Hypothyroidism, Vitamin D Deficiency Hematologic History: Reports: Anemia, B12 Deficiency, Other (See Below) Other Hematologic History: Vitamin D Immunologic History: Reports: None Oncologic (Cancer) History: Reports: None Dermatologic History: Reports: None - Infectious Disease History Infectious Disease History: Reports: Chicken Pox, Mumps - Past Surgical History Head Surgeries/Procedures: Reports: None HEENT Surgical History: Reports: Oral Surgery Cardiovascular Surgical History: Reports: None Respiratory Surgical History: Reports: None GI Surgical History: Reports: Appendectomy, Cholecystectomy, Colonoscopy, EGD, Polypectomy Female Surgical History: Reports: Breast Biopsy Endocrine Surgical History: Reports: None Neurological Surgical History: Reports: C-Spine, Laminectomy, Scoliosis Musculoskeletal Surgical History: Reports: Shoulder Surgery Oncologic Surgical History: Reports: Biopsy of Breast Dermatological Surgical History: Reports: None Social & Family History - Family History Family Medical History: Unobtainable - Caffeine Use Caffeine Use: Reports: Coffee, Soda ED ROS GENERAL - Review of Systems Review Of Systems: See Below Constitutional: Reports: No Symptoms HEENT: Reports: No Symptoms Respiratory: Reports: No Symptoms Cardiovascular: Reports: Blood Pressure Problem Endocrine: Reports: No Symptoms GI/Abdominal: Reports: No Symptoms : Reports: No Symptoms Musculoskeletal: Reports: No Symptoms Skin: Reports: No Symptoms Neurological: Reports: No Symptoms (No acute neurologic symptoms. A fair amount of chronic neurologic symptoms that she is currently undergoing a neurologic work-up for.) Psychiatric: Reports: No Symptoms Hematologic/Lymphatic: Reports: No Symptoms Immunologic: Reports: No Symptoms ED EXAM, GENERAL - Physical Exam Exam: See Below Exam Limited By: No Limitations General Appearance: Alert, No Apparent Distress Eye Exam: Bilateral Eye: EOMI, PERRL (Sensitive to light in both eyes) Throat/Mouth: Normal Inspection, Normal Oropharynx, Normal Voice, No Airway Compromise Head: Atraumatic, Normocephalic Neck: Normal Inspection, Supple, Non-Tender, Full Range of Motion, Other (Midline scar in the cervical spine from previous surgery). No: Carotid Bruit, Lymphadenopathy (R), Lymphadenopathy (L) Respiratory/Chest: No Respiratory Distress, Normal Breath Sounds, No Accessory Muscle Use, Wheezing (Scant expiratory wheezes) Cardiovascular: Normal Peripheral Pulses, Regular Rate, Rhythm, No Murmur Peripheral Pulses: 2+: Radial (L), Radial (R), Posterior Tibial (L), Posterior Tibial (R) GI/Abdominal: Normal Bowel Sounds, Soft, Non-Tender Back Exam: Normal Inspection, Full Range of Motion Extremities: Normal Inspection, No Pedal Edema Neurological: Alert, Oriented, CN II-XII Intact, Normal Cognition, No Motor/Sensory Deficits Psychiatric: Normal Affect, Normal Mood Skin Exam: Warm, Dry, Intact, Normal Color Lymphatic: No Adenopathy #1 Interpretation EKG Date: 12/23/20 Time: 00:17 Rhythm: NSR Rate (Beats/Min): 80 [place]: Normal P-Wave: Present QRS: Normal ST-T: Normal QT: Normal Comparison: NA - No Prior EKG Course - Vital Signs Last Recorded V/S: Last Vital Signs Temp 35.6 C L 12/23/20 00:01 Pulse 89 12/23/20 00:01 Resp 16 12/23/20 00:01 BP 169/88 H 12/23/20 00:01 Pulse Ox 98 12/23/20 00:01 - Orders/Labs/Meds Orders: Active Orders 24 hr Category Date Time Status EKG Documentation Completion [RC] ASDIRECTED Care 12/23/20 00:07 Active EKG 12 Lead [EK] Routine Ther 12/23/20 00:07 Ordered Labs: Laboratory Tests 12/23/20 12/23/20 Range/Units 00:20 00:20 WBC 8.4 (4.5-11.0) K/uL RBC 3.95 (3.30-5.50) M/uL Hgb 11.1 L D (12.0-15.0) g/dL Hct 34.9 L (36.0-48.0) % MCV 88 (80-98) fL MCH 28 (27-31) pg MCHC 32 (32-36) % Plt Count 269 (150-400) K/uL Sodium 138 L (140-148) mmol/L Potassium 4.7 (3.6-5.2) mmol/L Chloride 102 (100-108) mmol/L Carbon Dioxide 27 (21-32) mmol/L Anion Gap 13.7 (5.0-14.0) mmol/L BUN 16 (7-18) mg/dL Creatinine 0.9 (0.6-1.0) mg/dL Est Cr Clr Drug Dosing 53.31 mL/min Estimated GFR (MDRD) > 60 (>60) Glucose 100 (74-106) mg/dL Calcium 9.3 (8.5-10.1) mg/dL Total Bilirubin 0.7 (0.2-1.0) mg/dL AST 14 L (15-37) U/L ALT 22 (12-78) U/L Alkaline Phosphatase 87 (46-116) U/L Total Protein 6.2 L (6.4-8.2) g/dL Albumin 3.9 (3.4-5.0) g/dL Globulin 2.3 (2.3-3.5) g/dL Albumin/Globulin Ratio 1.7 (1.2-2.2) TSH, Ultra Sensitive 1.065 (0.358-3.740) uIU/mL Meds: Medications Discontinued Medications Generic Name Dose Route Start Last Admin Trade Name Freq PRN Reason Stop Dose Admin Amlodipine Besylate 5 mg 12/23/20 00:58 Amlodipine 5 Mg Tab PO 12/23/20 00:59 ONETIME ONE - Re-Assessments/Exams Free Text/Narrative Re-Assessment/Exam: 12/23/20 00:59 I reviewed the labs showing a normal CBC, comprehensive metabolic profile, and TSH. Although the patient's blood pressure is not alarmingly high, we will start her him amlodipine 5 mg daily to help reduce her blood pressure in addition to the praises and that she is already on. She should follow up with Alden Gibbs for recheck in 1 to 2 weeks. Indications to return to the ED were discussed and she was discharged in satisfactory condition. Departure - Departure Time of Disposition: 01:00 Disposition: Home, Self-Care 01 Clinical Impression: Elevated blood pressure reading - Discharge Information Prescriptions: amLODIPine [Norvasc] 5 mg PO DAILY 30 Days #30 tab Instructions: Managing Your Hypertension Referrals: Alden Bui, [employer]ODUCER [Primary Care Provider] - Forms: ED Department Discharge Care Plan Goals: I am adding a new medication to your multiple others called amlodipine which helps dilate blood vessels and lower blood pressure. It will be at a dose of 5 mg daily. I have a printed prescription for you to fill in the morning and we are giving the first dose of the medication now. I had like you to follow-up with Alden Gibbs within 1 to 2 weeks for recheck. I would advocate against [facility] blood pressure more frequently than every 1-2 hours and typically would advocate for only checking blood pressure once or twice a day. Frequent checks of blood pressure causes a stress reaction causing the release of adrenaline which will raise your blood pressure iatrogenically. Sepsis Event Note (ED) - Focused Exam Vital Signs: Vital Signs Temp Pulse Resp BP Pulse Ox 12/23/20 00:01 35.6 C L 89 16 169/88 H 98 - Problem List & Annotations (1) Elevated blood pressure reading SNOMED Code(s): 81463437 Code(s): R03.0 - ELEVATED BLOOD-PRESSURE READING, W/O DIAGNOSIS OF HTN Status: Acute Priority: Medium Current Visit: Yes - Problem List Review Problem List Initiated/Reviewed/Updated: Yes - My Orders Last 24 Hours: My Active Orders 12/23/20 00:07 EKG Documentation Completion [RC] ASDIRECTED EKG 12 Lead [EK] Routine - Assessment/Plan Last 24 Hours: My Active Orders 12/23/20 00:07 EKG Documentation Completion [RC] ASDIRECTED EKG 12 Lead [EK] Routine
[2020-12-23] MEDS ORDERED: amLODIPine 5 MG Tab PO ONE (00:58)
== END 2020-12-23 01:18 | disposition home or self-care (01) ==
LOC: JP.ED 23:41
DX: I10 Essential (primary) hypertension (principal); E78.00 Pure hypercholesterolemia, unspecified; E11.9 Type 2 diabetes mellitus without complications; J44.9 Chronic obstructive pulmonary disease, unspecified; E03.9 Hypothyroidism, unspecified; Z79.82 Long term (current) use of aspirin; Z79.84 Long term (current) use of oral hypoglycemic drugs; Z79.899 Other long term (current) drug therapy; Z88.1 Allergy status to other antibiotic agents; Z88.0 Allergy status to penicillin; Z91.030 Bee allergy status
CPT/HCPCS: 36415; 80053; 84443; 85027; 93005; 93010; 99283; 99283-25; A9270-GY

== ENCOUNTER 2020-12-24 10:32 | Emergency (ER) | payer MEDICAID, MEDICARE ==
--- NOTE | 2020-12-24 11:25 | EDM.PDOCBH ---
ED HPI GENERAL MEDICAL PROBLEM - General Chief Complaint: Behavioral/Psych Stated Complaint: DEPRESSED AND SUICIDAL Time Seen by Provider: 12/24/20 11:24 Source of Information: Reports: Patient, Other (alfhome performance laborer) History Limitations: Reports: No Limitations - History of Present Illness INITIAL COMMENTS - FREE TEXT/NARRATIVE: Eloisa is a 65 year old female whom present from alf setting with worsening depression symptoms and suicidal thoughts with a plan. Plan is to got to stroke and purchase OTC pain medication and take the whole bottle. Eloisa has been hospitalized in the past for depression and suicide, unsure if pervious attempt made. Eloisa is on numerous medications for mental health which are managed by a mental health care provider whom is retiring in 2 months. Eloisa would like to review and possibly change or decreased her medications but need to find a new mental health care provider. Eloisa reports weekly counseling sessions at this time. Eloisa was triggered by another resident whom spoke poorly to her and stating she is just attention seeking and does not feel depressed or suicidal, which worsened Eloisa's self esteem and opinion. Eloisa reports worsening mental health and physical health and feeling like a burden to her care givers with feeling of hopelessness and helplessness. - Related Data Allergies Allergy/AdvReac Type Severity Reaction Status Date / Time amoxicillin Allergy Other Verified 12/24/20 11:07 bee venom protein (honey bee) Allergy Other Verified 12/24/20 11:07 cefuroxime [From Ceftin] Allergy Other Verified 12/24/20 11:07 ciprofloxacin Allergy Other Verified 12/24/20 11:07 doxorubicin [From Adriamycin] Allergy Other Verified 12/24/20 11:07 doxycycline Allergy Rash Verified 12/24/20 11:07 erythromycin base Allergy Other Verified 12/24/20 11:07 Penicillins Allergy Other Verified 12/24/20 11:07 prednisone Allergy Abdominal Verified 12/24/20 11:07 Pain tetracycline Allergy Other Verified 12/24/20 11:07 trimethoprim [From Bactrim] Allergy Other Verified 12/24/20 11:07 Home Meds: Home Meds Acetaminophen [Tylenol Extra Strength] 1,000 mg PO TID PRN 02/18/18 [History] Aspirin 81 mg PO DAILY 02/18/18 [History] Budesonide/Formoterol [Symbicort 160-4.5 MCG] 2 puff INH BID 02/18/18 [History] Calcium Carbonate/Vitamin D3 [Calcium 600 + Vit D Tablet] 1 tab PO BID 02/18/18 [History] DULoxetine [Cymbalta] 60 mg PO BID 02/18/18 [History] EPINEPHrine [Epinephrine] 0.3 mg SQ ASDIRECTED PRN 02/18/18 [History] Prazosin HCl [Prazosin] 2 cap PO BEDTIME 02/18/18 [History] hydrOXYzine pamoate [Hydroxyzine Pamoate] 50 mg PO TID 02/18/18 [History] metFORMIN HCl [Metformin HCl] 1,000 mg PO BID 02/18/18 [History] polyethylene glycoL 3350 [Miralax] 17 gm PO DAILY 02/18/18 [History] Levothyroxine 100 mcg PO DAILY 04/07/18 [History] Ondansetron [Zofran ODT] 4 mg PO Q8H PRN 04/07/18 [History] Cyanocobalamin (Vitamin B-12) [Vitamin B-12] 500 mcg PO DAILY 04/09/18 [History] busPIRone [Buspar] 30 mg PO BID 06/03/18 [History] cloZAPine 75 mg PO BEDTIME 06/03/18 [History] Benztropine [Cogentin] 1 mg PO QPM 04/01/19 [History] Fluticasone Propionate [Flonase] 2 spray RANDY DAILY 04/01/19 [History] Gabapentin [Neurontin] 600 mg PO TID 04/01/19 [History] Naproxen 500 mg PO BID PRN 04/01/19 [History] Simethicone 125 mg CHEW QID 04/01/19 [History] Cholecalciferol (Vitamin D3) [Vitamin D3] 2,000 unit PO DAILY 04/05/19 [History] Omeprazole 20 mg PO BID 04/05/19 [History] traZODone HCl [Trazodone HCl] 100 mg PO BEDTIME 10/10/19 [History] ARIPiprazole [Abilify] 0.5 tab PO DAILY 10/26/19 [History] Diclofenac Sodium [Voltaren 1% Gel] 4 gm TOP QID PRN 10/26/19 [History] Ferrous Sulfate 325 mg PO DAILY 10/26/19 [History] Meclizine HCl [Travel Sickness] 12.5 mg PO TID PRN 10/26/19 [History] methocarbamoL [Robaxin] 500 mg PO TID PRN 10/26/19 [History] Dulaglutide [Trulicity] 0.75 mg SQ WEEKLY 12/23/20 [History] Loratadine 1 tab PO DAILY 12/23/20 [History] Prazosin [Minpress] 1 cap PO BEDTIME 12/23/20 [History] QUEtiapine [SEROquel] 0.5 tab PO ASDIRECTED PRN 12/23/20 [History] QUEtiapine [SEROquel] 0.5 tab PO QAM 12/23/20 [History] QUEtiapine [SEROquel] 1 tab PO ASDIRECTED 12/23/20 [History] QUEtiapine [SEROquel] 1 tab PO BEDTIME 12/23/20 [History] amLODIPine [Norvasc] 5 mg PO DAILY 30 Days #30 tab 12/23/20 [Rx] traZODone 0.5 tab PO ASDIRECTED PRN 12/23/20 [History] Past Medical History HEENT History: Reports: Allergic Rhinitis, Cataract Cardiovascular History: Reports: High Cholesterol, Hypertension Respiratory History: Reports: COPD Gastrointestinal History: Reports: Cholelithiasis, Chronic Constipation, Colon Polyp, Gastritis Genitourinary History: Reports: UTI, Recurrent KINDERGARTEN TUTOR History: Reports: None Musculoskeletal History: Reports: Fracture, Neck Pain, Chronic, Osteoarthritis, Other (See Below) Other Musculoskeletal History: bilateral shoulder pain Neurological History: Reports: Brain Injury, Head Trauma Psychiatric History: Reports: Depression, Psychosis, PTSD, Schizophrenia, Suicide Attempt, Suicidal Ideation, Other (See Below) Other Psychiatric History: Boarderline Personality Disorder, Dissociative Disorder, Intellectual Disability Endocrine/Metabolic History: Reports: Diabetes, Type II, Hypothyroidism, Vitamin D Deficiency Hematologic History: Reports: Anemia, B12 Deficiency, Other (See Below) Other Hematologic History: Vitamin D Immunologic History: Reports: None Oncologic (Cancer) History: Reports: None Dermatologic History: Reports: None - Infectious Disease History Infectious Disease History: Reports: Chicken Pox, Mumps - Past Surgical History Head Surgeries/Procedures: Reports: None HEENT Surgical History: Reports: Oral Surgery Cardiovascular Surgical History: Reports: None Respiratory Surgical History: Reports: None GI Surgical History: Reports: Appendectomy, Cholecystectomy, Colonoscopy, EGD, Polypectomy Female Surgical History: Reports: Breast Biopsy Endocrine Surgical History: Reports: None Neurological Surgical History: Reports: C-Spine, Laminectomy, Scoliosis Musculoskeletal Surgical History: Reports: Shoulder Surgery Oncologic Surgical History: Reports: Biopsy of Breast Dermatological Surgical History: Reports: None Social & Family History - Family History Family Medical History: Unobtainable - Tobacco Use Tobacco Use Status *Q: Current Every Day Tobacco User Years of Tobacco use: 45 Packs/Tins Daily: 1 - Caffeine Use Caffeine Use: Reports: Coffee, Soda ED ROS GENERAL - Review of Systems Review Of Systems: Comprehensive ROS is negative, except as noted in HPI. (Eloisa denies any medical concerns today) ED EXAM, BEHAVIORAL HEALTH - Physical Exam Exam: See Below Exam Limited By: No Limitations General Appearance: Alert, WD/WN, Mild Distress (mood related) Eye Exam: Bilateral Eye: EOMI, Normal Inspection Ears: Hearing Grossly Normal Nose: Normal Inspection Throat/Mouth: Normal Voice, No Airway Compromise Neck: Normal Inspection Respiratory/Chest: No Respiratory Distress, Normal Breath Sounds Cardiovascular: Normal Peripheral Pulses GI/Abdominal: Normal Bowel Sounds Back Exam: Normal Inspection, Full Range of Motion Extremities: Normal Inspection, Normal Range of Motion Neurological: Alert, Normal Mood/Affect, CN II-XII Intact Psychiatric: Alert, Normal Affect, Normal Cognition Skin Exam: Warm, Dry, Intact COURSE, BEHAVIORAL HEALTH COMP - Course Vital Signs: Last Vital Signs Temp 36.1 C 12/24/20 11:13 Pulse 91 12/24/20 11:13 Resp 14 12/24/20 11:13 BP 114/71 12/24/20 11:13 Pulse Ox 98 12/24/20 11:13 Orders, Labs, Meds: Active Orders 24 hr Category Date Time Status [facility] ASDIRECTED Care 12/24/20 12:17 Active Nicotine Polacrilex [Nicorelief] Med 12/24/20 17:00 Active 4 mg CHEW Q2H PRN Medication Orders Nicotine Polacrilex (Nicotine Polacrilex 2 Mg Gum) 4 mg CHEW Q2H PRN PRN Reason: Agitation Last Admin: 12/24/20 17:08 Dose: 4 mg Documented by: ARMIDA Laboratory Tests 12/24/20 12/24/20 12/24/20 Range/Units 12:25 14:57 16:01 Sodium 139 L (140-148) mmol/L Potassium 5.2 (3.6-5.2) mmol/L Chloride 102 (100-108) mmol/L Carbon Dioxide 29 (21-32) mmol/L Anion Gap 13.2 (5.0-14.0) mmol/L BUN 19 H (7-18) mg/dL Creatinine 0.9 (0.6-1.0) mg/dL Est Cr Clr Drug Dosing 51.55 mL/min Estimated GFR (MDRD) > 60 (>60) Glucose 77 (74-106) mg/dL Calcium 9.9 (8.5-10.1) mg/dL Total Bilirubin 0.6 (0.2-1.0) mg/dL AST 13 L (15-37) U/L ALT 23 (12-78) U/L Alkaline Phosphatase 97 (46-116) U/L Total Protein 6.7 (6.4-8.2) g/dL Albumin 4.2 (3.4-5.0) g/dL Globulin 2.5 (2.3-3.5) g/dL Albumin/Globulin Ratio 1.7 (1.2-2.2) TSH, Ultra Sensitive 0.370 (0.358-3.740) uIU/mL Urine Color (YELLOW) Urine Appearance (CLEAR) Urine pH (5.0-8.0) Ur Specific [place] (1.008-1.030) Urine Protein (NEGATIVE) mg/dL Urine Glucose (UA) (NEGATIVE) mg/dL Urine Ketones (NEGATIVE) mg/dL Urine Occult Blood (NEGATIVE) Urine Nitrite (NEGATIVE) Urine Bilirubin (NEGATIVE) Urine Urobilinogen (0.2-1.0) EU/dL Ur Leukocyte Esterase (NEGATIVE) Urine RBC (0-5) Urine WBC (0-5) Ur Epithelial Cells Amorphous Sediment Urine Bacteria Urine Mucus Urine Opiates Screen Negative (NEGATIVE) Ur Oxycodone Screen Negative (NEGATIVE) Urine Methadone Screen Negative (NEGATIVE) Ur Propoxyphene Screen Negative (NEGATIVE) Ur Barbiturates Screen Negative (NEGATIVE) Ur Tricyclics Screen Negative (NEGATIVE) Ur Phencyclidine Scrn Negative (NEGATIVE) Ur Amphetamine Screen Negative (NEGATIVE) U Methamphetamines Scrn Negative (NEGATIVE) Urine MDMA Screen Negative (NEGATIVE) U Benzodiazepines Scrn Negative (NEGATIVE) U Cocaine Metab Screen Negative (NEGATIVE) U Marijuana (THC) Screen Negative (NEGATIVE) Ethyl Alcohol mg/dL SARS CoV-2 RNA Rapid HARJIT Negative 12/24/20 12/24/20 Range/Units 16:01 18:24 Sodium (140-148) mmol/L Potassium (3.6-5.2) mmol/L Chloride (100-108) mmol/L Carbon Dioxide (21-32) mmol/L Anion Gap (5.0-14.0) mmol/L BUN (7-18) mg/dL Creatinine (0.6-1.0) mg/dL Est Cr Clr Drug Dosing mL/min Estimated GFR (MDRD) (>60) Glucose (74-106) mg/dL Calcium (8.5-10.1) mg/dL Total Bilirubin (0.2-1.0) mg/dL AST (15-37) U/L ALT (12-78) U/L Alkaline Phosphatase (46-116) U/L Total Protein (6.4-8.2) g/dL Albumin (3.4-5.0) g/dL Globulin (2.3-3.5) g/dL Albumin/Globulin Ratio (1.2-2.2) TSH, Ultra Sensitive (0.358-3.740) uIU/mL Urine Color Yellow (YELLOW) Urine Appearance Clear (CLEAR) Urine pH 5.5 (5.0-8.0) Ur Specific [place] 1.025 (1.008-1.030) Urine Protein Negative (NEGATIVE) mg/dL Urine Glucose (UA) Negative (NEGATIVE) mg/dL Urine Ketones Negative (NEGATIVE) mg/dL Urine Occult Blood Negative (NEGATIVE) Urine Nitrite Negative (NEGATIVE) Urine Bilirubin Negative (NEGATIVE) Urine Urobilinogen 0.2 (0.2-1.0) EU/dL Ur Leukocyte Esterase Trace H (NEGATIVE) Urine RBC 0-5 (0-5) Urine WBC 0-5 (0-5) Ur Epithelial Cells Occasional Amorphous Sediment Occasional Urine Bacteria Occasional Urine Mucus Not seen Urine Opiates Screen (NEGATIVE) Ur Oxycodone Screen (NEGATIVE) Urine Methadone Screen (NEGATIVE) Ur Propoxyphene Screen (NEGATIVE) Ur Barbiturates Screen (NEGATIVE) Ur Tricyclics Screen (NEGATIVE) Ur Phencyclidine Scrn (NEGATIVE) Ur Amphetamine Screen (NEGATIVE) U Methamphetamines Scrn (NEGATIVE) Urine MDMA Screen (NEGATIVE) U Benzodiazepines Scrn (NEGATIVE) U Cocaine Metab Screen (NEGATIVE) U Marijuana (THC) Screen (NEGATIVE) Ethyl Alcohol < 3 mg/dL SARS CoV-2 RNA Rapid HARJIT Medications Generic Name Dose Route Start Last Admin Trade Name Freq PRN Reason Stop Dose Admin Nicotine Polacrilex 4 mg 12/24/20 17:00 12/24/20 17:08 Nicotine Polacrilex 2 Mg Gum CHEW 4 mg Q2H PRN Administration Agitation Re-Assessment/Re-Exam: 14:45 Update patient regarding blood test results showing no acute concerning findings to explain symptoms. scalp specialist will be available to interview patient around 3pm today. 15:00 scalp specialist in department to interview patient. Placement is offered at this time due to improved mediation management recommended, which is safe inpatient for patient consenting for care. If placement is not possible, patient will be contracted for safety with alf facility. 16:35 Nursing staff to call and sent patient information for possible placement at [facility] unit in [place] has availability but will review history and presenting concern to decide on acceptance later today. 17:50 Nursing staff called [facility] regarding possible placement, but staff was not aware of request or documentation for placement. ER staff contacted crisis staff to clarify. 21:15 Call from [facility] to speak to Tanvi regarding possible placement this evening. 21:48 Acceptance obtained form [facility] in [place] at this time. [facility] staff will be able to transport patient to facility this evening. Departure - Departure Time of Disposition: 21:50 Disposition: DC/Tfer to Psych Hosp/Unit [facility] Clinical Impression: PTSD (post-traumatic stress disorder), Pain medication agreement, Schizo- affective schizophrenia, chronic condition, Borderline personality disorder, COPD (chronic obstructive pulmonary disease), Recurrent falls, Elevated blood pressure reading, GERD (gastroesophageal reflux disease), JOE (obstructive sleep apnea) - Discharge Information Referrals: PCP,None [Primary Care Provider] - Forms: ED Department Discharge Sepsis Event Note (ED) - Evaluation Sepsis Screening Result: No Definite Risk - Focused Exam Vital Signs: Vital Signs Temp Pulse Resp BP Pulse Ox 12/24/20 11:13 36.1 C 91 14 114/71 98 - My Orders Last 24 Hours: My Active Orders 12/24/20 12:17 [facility]] ASDIRECTED 12/24/20 17:00 Nicotine Polacrilex [Nicorelief] 4 mg CHEW Q2H PRN - Assessment/Plan Last 24 Hours: My Active Orders 12/24/20 12:17 [facility]] ASDIRECTED 12/24/20 17:00 Nicotine Polacrilex [Nicorelief] 4 mg CHEW Q2H PRN
[2020-12-24] MEDS ORDERED: Nicotine Polacrilex 2 MG Gum CHEW PRN (17:00)
== END 2020-12-24 22:11 ==
LOC: JP.ED 10:32
DX: F25.9 Schizoaffective disorder, unspecified (principal); G47.33 Obstructive sleep apnea (adult) (pediatric); F60.3 Borderline personality disorder; J44.9 Chronic obstructive pulmonary disease, unspecified; K21.9 Gastro-esophageal reflux disease without esophagitis; F43.10 Post-traumatic stress disorder, unspecified; I10 Essential (primary) hypertension; R29.6 Repeated falls; E11.9 Type 2 diabetes mellitus without complications; E03.9 Hypothyroidism, unspecified; E78.00 Pure hypercholesterolemia, unspecified; Z88.0 Allergy status to penicillin; Z88.1 Allergy status to other antibiotic agents; Z88.8 Allergy status to other drugs, medicaments and biological substances; Z72.0 Tobacco use; Z20.822 Contact with and (suspected) exposure to COVID-19; Z91.030 Bee allergy status; Z79.82 Long term (current) use of aspirin; Z79.899 Other long term (current) drug therapy
CPT/HCPCS: 36415; 80053; 80305; 80307; 81001; 84443; 87635; 99285; A9270; U0002

== ENCOUNTER 2021-01-07 16:34 | Emergency (ER) | payer MEDICARE ==
--- NOTE | 2021-01-07 18:01 | EDM.PDOC ---
ED HPI GENERAL MEDICAL PROBLEM - General Chief Complaint: Gastrointestinal Problem Stated Complaint: UTI/BLADDER INFECTION Time Seen by Provider: 01/07/21 17:03 Source of Information: Reports: Patient History Limitations: Reports: No Limitations - History of Present Illness INITIAL COMMENTS - FREE TEXT/NARRATIVE: 65 yo presents to the ER with dysuria. increase in frequency with small void amounts. trace of blood in urine yesterday. fatigue. Pelvic Pain Score (Numeric/FACES): 6 - Related Data Allergies Allergy/AdvReac Type Severity Reaction Status Date / Time amoxicillin Allergy Other Verified 01/07/21 17:16 bee venom protein (honey bee) Allergy Other Verified 01/07/21 17:16 cefuroxime [From Ceftin] Allergy Other Verified 01/07/21 17:16 ciprofloxacin Allergy Other Verified 01/07/21 17:16 doxorubicin [From Adriamycin] Allergy Other Verified 01/07/21 17:16 doxycycline Allergy Rash Verified 01/07/21 17:16 erythromycin base Allergy Other Verified 01/07/21 17:16 Penicillins Allergy Other Verified 01/07/21 17:16 prednisone Allergy Abdominal Verified 01/07/21 17:16 Pain tetracycline Allergy Other Verified 01/07/21 17:16 trimethoprim [From Bactrim] Allergy Other Verified 01/07/21 17:16 Home Meds: Home Meds Acetaminophen [Tylenol Extra Strength] 1,000 mg PO TID PRN 02/18/18 [History] Aspirin 81 mg PO DAILY 02/18/18 [History] Budesonide/Formoterol [Symbicort 160-4.5 MCG] 2 puff INH BID 02/18/18 [History] Calcium Carbonate/Vitamin D3 [Calcium 600 + Vit D Tablet] 1 tab PO BID 02/18/18 [History] DULoxetine [Cymbalta] 60 mg PO BID 02/18/18 [History] EPINEPHrine [Epinephrine] 0.3 mg SQ ASDIRECTED PRN 02/18/18 [History] Prazosin HCl [Prazosin] 2 cap PO BEDTIME 02/18/18 [History] hydrOXYzine pamoate [Hydroxyzine Pamoate] 50 mg PO TID 02/18/18 [History] metFORMIN HCl [Metformin HCl] 1,000 mg PO BID 02/18/18 [History] polyethylene glycoL 3350 [Miralax] 17 gm PO DAILY 02/18/18 [History] Levothyroxine 100 mcg PO DAILY 04/07/18 [History] Ondansetron [Zofran ODT] 4 mg PO Q8H PRN 04/07/18 [History] Cyanocobalamin (Vitamin B-12) [Vitamin B-12] 500 mcg PO DAILY 04/09/18 [History] busPIRone [Buspar] 30 mg PO BID 06/03/18 [History] cloZAPine 75 mg PO BEDTIME 06/03/18 [History] Benztropine [Cogentin] 1 mg PO QPM 04/01/19 [History] Fluticasone Propionate [Flonase] 2 spray RANDY DAILY 04/01/19 [History] Gabapentin [Neurontin] 600 mg PO TID 04/01/19 [History] Naproxen 500 mg PO BID PRN 04/01/19 [History] Simethicone 125 mg CHEW QID 04/01/19 [History] Cholecalciferol (Vitamin D3) [Vitamin D3] 2,000 unit PO DAILY 04/05/19 [History] Omeprazole 20 mg PO BID 04/05/19 [History] traZODone HCl [Trazodone HCl] 100 mg PO BEDTIME 10/10/19 [History] ARIPiprazole [Abilify] 0.5 tab PO DAILY 10/26/19 [History] Diclofenac Sodium [Voltaren 1% Gel] 4 gm TOP QID PRN 10/26/19 [History] Ferrous Sulfate 325 mg PO DAILY 10/26/19 [History] Meclizine HCl [Travel Sickness] 12.5 mg PO TID PRN 10/26/19 [History] methocarbamoL [Robaxin] 500 mg PO TID PRN 10/26/19 [History] Dulaglutide [Trulicity] 0.75 mg SQ WEEKLY 12/23/20 [History] Loratadine 1 tab PO DAILY 12/23/20 [History] Prazosin [Minpress] 1 cap PO BEDTIME 12/23/20 [History] QUEtiapine [SEROquel] 0.5 tab PO ASDIRECTED PRN 12/23/20 [History] QUEtiapine [SEROquel] 0.5 tab PO QAM 12/23/20 [History] QUEtiapine [SEROquel] 1 tab PO ASDIRECTED 12/23/20 [History] QUEtiapine [SEROquel] 1 tab PO BEDTIME 12/23/20 [History] amLODIPine [Norvasc] 5 mg PO DAILY 30 Days #30 tab 12/23/20 [Rx] traZODone 0.5 tab PO ASDIRECTED PRN 12/23/20 [History] Past Medical History HEENT History: Reports: Allergic Rhinitis, Cataract Cardiovascular History: Reports: High Cholesterol, Hypertension Respiratory History: Reports: COPD Gastrointestinal History: Reports: Cholelithiasis, Chronic Constipation, Colon Polyp, Gastritis Genitourinary History: Reports: UTI, Recurrent MARKETING PROGRAM MANAGER History: Reports: None Musculoskeletal History: Reports: Fracture, Neck Pain, Chronic, Osteoarthritis, Other (See Below) Other Musculoskeletal History: bilateral shoulder pain Neurological History: Reports: Brain Injury, Head Trauma Psychiatric History: Reports: Depression, Psychosis, PTSD, Schizophrenia, Suicide Attempt, Suicidal Ideation, Other (See Below) Other Psychiatric History: Boarderline Personality Disorder, Dissociative Disorder, Intellectual Disability Endocrine/Metabolic History: Reports: Diabetes, Type II, Hypothyroidism, Vitamin D Deficiency Hematologic History: Reports: Anemia, B12 Deficiency, Other (See Below) Other Hematologic History: Vitamin D Immunologic History: Reports: None Oncologic (Cancer) History: Reports: None Dermatologic History: Reports: None - Infectious Disease History Infectious Disease History: Reports: Chicken Pox, Mumps Other Infectious Disease History: covid vacc - Past Surgical History Head Surgeries/Procedures: Reports: None HEENT Surgical History: Reports: Oral Surgery Cardiovascular Surgical History: Reports: None Respiratory Surgical History: Reports: None GI Surgical History: Reports: Appendectomy, Cholecystectomy, Colonoscopy, EGD, Polypectomy Female Surgical History: Reports: Breast Biopsy Endocrine Surgical History: Reports: None Neurological Surgical History: Reports: C-Spine, Laminectomy, Scoliosis Musculoskeletal Surgical History: Reports: Shoulder Surgery Oncologic Surgical History: Reports: Biopsy of Breast Dermatological Surgical History: Reports: None Social & Family History - Family History Family Medical History: Unobtainable - Tobacco Use Tobacco Use Status *Q: Current Every Day Tobacco User Years of Tobacco use: 40 Packs/Tins Daily: 0.5 - Caffeine Use Caffeine Use: Reports: Coffee - Recreational Drug Use Recreational Drug Use: No ED ROS GENERAL - Review of Systems Review Of Systems: See Below Constitutional: Reports: Fatigue. Denies: Fever Respiratory: Denies: Shortness of Breath, Wheezing Cardiovascular: Denies: Chest Pain GI/Abdominal: Reports: Abdominal Pain : Reports: Dysuria, Frequency ED EXAM, GI/ABD - Physical Exam Exam: See Below Exam Limited By: No Limitations General Appearance: Alert, WD/WN, No Apparent Distress Respiratory/Chest: No Respiratory Distress, Lungs Clear, Normal Breath Sounds, No Accessory Muscle Use, Chest Non-Tender Cardiovascular: Regular Rate, Rhythm, No Murmur GI/Abdominal Exam: Soft, Non-Tender Course - Vital Signs Last Recorded V/S: Last Vital Signs Temp 35.9 C L 01/07/21 17:13 Pulse 89 01/07/21 17:13 Resp 16 01/07/21 17:13 BP 115/66 01/07/21 17:13 Pulse Ox 97 01/07/21 17:13 - Orders/Labs/Meds Labs: Laboratory Tests 01/07/21 Range/Units 17:06 Urine Color Yellow (YELLOW) Urine Appearance Slightly cloudy A (CLEAR) Urine pH 5.0 (5.0-8.0) Ur Specific [place] 1.025 (1.008-1.030) Urine Protein Negative (NEGATIVE) mg/dL Urine Glucose (UA) Negative (NEGATIVE) mg/dL Urine Ketones Negative (NEGATIVE) mg/dL Urine Occult Blood Negative (NEGATIVE) Urine Nitrite Negative (NEGATIVE) Urine Bilirubin Negative (NEGATIVE) Urine Urobilinogen 0.2 (0.2-1.0) EU/dL Ur Leukocyte Esterase Small H (NEGATIVE) Urine RBC 0-5 (0-5) Urine WBC 5-10 H (0-5) Ur Epithelial Cells Not seen Amorphous Sediment Not seen Urine Bacteria Rare Urine Mucus Not seen Departure - Departure Time of Disposition: 17:59 Disposition: Home, Self-Care 01 Condition: Good Clinical Impression: Acute cystitis Qualifiers: Hematuria presence: without hematuria Qualified Code(s): N30.00 - Acute cystitis without hematuria - Discharge Information *PRESCRIPTION DRUG MONITORING PROGRAM REVIEWED*: Not Applicable *COPY OF PRESCRIPTION DRUG MONITORING REPORT IN PATIENT MUNIR: Not Applicable Instructions: Urinary Tract Infection, Adult, [id number] Referrals: PCP,None [Primary Care Provider] - Forms: ED Department Discharge Additional Instructions: MAcrobid 100 mg twice daily for 7 days increase fluid intake follow-up with primary care provider if this does not resolve Sepsis Event Note (ED) - Evaluation Sepsis Screening Result: No Definite Risk - Focused Exam Vital Signs: Vital Signs Temp Pulse Resp BP Pulse Ox 01/07/21 17:13 35.9 C L 89 16 115/66 97 01/07/21 17:01 35.9 C L 89 16 115/66 97
== END 2021-01-07 18:15 | disposition home or self-care (01) ==
LOC: JP.ED 16:34
DX: N30.00 Acute cystitis without hematuria (principal); I10 Essential (primary) hypertension; E78.00 Pure hypercholesterolemia, unspecified; E11.9 Type 2 diabetes mellitus without complications; E03.9 Hypothyroidism, unspecified; J44.9 Chronic obstructive pulmonary disease, unspecified; Z91.030 Bee allergy status; Z88.1 Allergy status to other antibiotic agents; Z88.0 Allergy status to penicillin; Z72.0 Tobacco use; Z79.82 Long term (current) use of aspirin; Z79.84 Long term (current) use of oral hypoglycemic drugs; Z79.899 Other long term (current) drug therapy
CPT/HCPCS: 81001; 99283

== ENCOUNTER 2021-01-10 18:06 | Emergency (ER) | payer MEDICARE ==
[2021-01-10] MEDS ORDERED: Ondansetron 4 MG/2 ML SDV IVPUSH ONE (18:25)
[2021-01-10] MEDS ORDERED: Sodium Chloride 0.9% 10 ML Syringe FLUSH PRN (18:25)
[2021-01-10] MEDS ORDERED: Sodium Chloride 0.9% 1,000 ML IV SCH (18:30)
--- NOTE | 2021-01-10 18:39 | EDM.PDOC ---
ED HPI GENERAL MEDICAL PROBLEM - General Chief Complaint: General Stated Complaint: KIDNEY INFECTION Time Seen by Provider: 01/10/21 18:17 Source of Information: Reports: Patient, Old Records, Provider History Limitations: Reports: No Limitations - History of Present Illness INITIAL COMMENTS - FREE TEXT/NARRATIVE: Tanvi is a 65-year-old female who was sent over from the [facility] when she saw Dr. Ana Luisa Billings today for continued urinary tract infection symptoms. Patient was seen on 01/07/2021 and diagnosed with a UTI. She had positive leukocyte esterase and 5-10 WBCs. A urine culture was not obtained but she was started on Macrobid 100 mg twice daily for 7 days. She was seen in follow-up yesterday and was continued to have urinary symptoms and Dr. Billings switched her to clindamycin 300 mg 3 times daily. She called today to talk to Dr. Billings and reported that she was experiencing back pain, increased malaise, headache, nausea and vomiting, and tachycardia. Dr. Billings was concerned that she was developing sepsis and sent her to the ED for reevaluation. The patient arrives afebrile and slightly tachycardic with a heart rate at 100 bpm. Upon w alking in the room to evaluate the patient she was vomiting. Although she has not had any fever she has had chills, increased back pain, urinary hesitancy and burning with urination, suprapubic pressure, generalized malaise and fatigue. She denies any constipation or diarrhea. She has no chest pain or shortness of breath. - Related Data Allergies Allergy/AdvReac Type Severity Reaction Status Date / Time amoxicillin Allergy Other Verified 01/10/21 18:26 bee venom protein (honey bee) Allergy Other Verified 01/10/21 18:26 cefuroxime [From Ceftin] Allergy Other Verified 01/10/21 18:26 ciprofloxacin Allergy Other Verified 01/10/21 18:26 doxorubicin [From Adriamycin] Allergy Other Verified 01/10/21 18:26 doxycycline Allergy Rash Verified 01/10/21 18:26 erythromycin base Allergy Other Verified 01/10/21 18:26 Penicillins Allergy Other Verified 01/10/21 18:26 prednisone Allergy Abdominal Verified 01/10/21 18:26 Pain tetracycline Allergy Other Verified 01/10/21 18:26 trimethoprim [From Bactrim] Allergy Other Verified 01/10/21 18:26 Home Meds: Home Meds Acetaminophen [Tylenol Extra Strength] 1,000 mg PO TID PRN 02/18/18 [History] Aspirin 81 mg PO DAILY 02/18/18 [History] Budesonide/Formoterol [Symbicort 160-4.5 MCG] 2 puff INH BID 02/18/18 [History] Calcium Carbonate/Vitamin D3 [Calcium 600 + Vit D Tablet] 1 tab PO BID 02/18/18 [History] DULoxetine [Cymbalta] 60 mg PO BID 02/18/18 [History] EPINEPHrine [Epinephrine] 0.3 mg SQ ASDIRECTED PRN 02/18/18 [History] Prazosin HCl [Prazosin] 2 cap PO BEDTIME 02/18/18 [History] hydrOXYzine pamoate [Hydroxyzine Pamoate] 50 mg PO TID 02/18/18 [History] metFORMIN HCl [Metformin HCl] 1,000 mg PO BID 02/18/18 [History] polyethylene glycoL 3350 [Miralax] 17 gm PO DAILY 02/18/18 [History] Levothyroxine 100 mcg PO DAILY 04/07/18 [History] Ondansetron [Zofran ODT] 4 mg PO Q8H PRN 04/07/18 [History] Cyanocobalamin (Vitamin B-12) [Vitamin B-12] 500 mcg PO DAILY 04/09/18 [History] busPIRone [Buspar] 30 mg PO BID 06/03/18 [History] cloZAPine 75 mg PO BEDTIME 06/03/18 [History] Benztropine [Cogentin] 1 mg PO QPM 04/01/19 [History] Fluticasone Propionate [Flonase] 2 spray RANDY DAILY 04/01/19 [History] Gabapentin [Neurontin] 600 mg PO TID 04/01/19 [History] Naproxen 500 mg PO BID PRN 04/01/19 [History] Simethicone 125 mg CHEW QID 04/01/19 [History] Cholecalciferol (Vitamin D3) [Vitamin D3] 2,000 unit PO DAILY 04/05/19 [History] Omeprazole 20 mg PO BID 04/05/19 [History] traZODone HCl [Trazodone HCl] 100 mg PO BEDTIME 10/10/19 [History] Diclofenac Sodium [Voltaren 1% Gel] 4 gm TOP QID PRN 10/26/19 [History] Ferrous Sulfate 325 mg PO DAILY 10/26/19 [History] Meclizine HCl [Travel Sickness] 12.5 mg PO TID PRN 10/26/19 [History] methocarbamoL [Robaxin] 500 mg PO TID PRN 10/26/19 [History] Dulaglutide [Trulicity] 0.75 mg SQ WEEKLY 12/23/20 [History] Loratadine 1 tab PO DAILY 12/23/20 [History] Prazosin [Minpress] 1 cap PO BEDTIME 12/23/20 [History] QUEtiapine [SEROquel] 0.5 tab PO ASDIRECTED PRN 12/23/20 [History] QUEtiapine [SEROquel] 0.5 tab PO QAM 12/23/20 [History] QUEtiapine [SEROquel] 1 tab PO ASDIRECTED 12/23/20 [History] QUEtiapine [SEROquel] 1 tab PO BEDTIME 12/23/20 [History] amLODIPine [Norvasc] 5 mg PO DAILY 30 Days #30 tab 12/23/20 [Rx] traZODone 0.5 tab PO ASDIRECTED PRN 12/23/20 [History] Past Medical History HEENT History: Reports: Allergic Rhinitis, Cataract Cardiovascular History: Reports: High Cholesterol, Hypertension Respiratory History: Reports: COPD Gastrointestinal History: Reports: Cholelithiasis, Chronic Constipation, Colon Polyp, Gastritis Genitourinary History: Reports: UTI, Recurrent [employer] History: Reports: None Musculoskeletal History: Reports: Fracture, Neck Pain, Chronic, Osteoarthritis, Other (See Below) Other Musculoskeletal History: bilateral shoulder pain Neurological History: Reports: Brain Injury, Head Trauma Psychiatric History: Reports: Depression, Psychosis, PTSD, Schizophrenia, Suicide Attempt, Suicidal Ideation, Other (See Below) Other Psychiatric History: Boarderline Personality Disorder, Dissociative Disorder, Intellectual Disability Endocrine/Metabolic History: Reports: Diabetes, Type II, Hypothyroidism, Vitamin D Deficiency Hematologic History: Reports: Anemia, B12 Deficiency, Other (See Below) Other Hematologic History: Vitamin D Immunologic History: Reports: None Oncologic (Cancer) History: Reports: None Dermatologic History: Reports: None - Infectious Disease History Infectious Disease History: Reports: Chicken Pox, Mumps Other Infectious Disease History: covid vacc - Past Surgical History Head Surgeries/Procedures: Reports: None HEENT Surgical History: Reports: Oral Surgery Cardiovascular Surgical History: Reports: None Respiratory Surgical History: Reports: None GI Surgical History: Reports: Appendectomy, Cholecystectomy, Colonoscopy, EGD, Polypectomy Female Surgical History: Reports: Breast Biopsy Endocrine Surgical History: Reports: None Neurological Surgical History: Reports: C-Spine, Laminectomy, Scoliosis Musculoskeletal Surgical History: Reports: Shoulder Surgery Oncologic Surgical History: Reports: Biopsy of Breast Dermatological Surgical History: Reports: None Social & Family History - Family History Family Medical History: Unobtainable - Caffeine Use Caffeine Use: Reports: Coffee ED ROS GENERAL - Review of Systems Review Of Systems: See Below Constitutional: Reports: Chills, Malaise, Fatigue, Decreased Appetite HEENT: Reports: No Symptoms Respiratory: Reports: No Symptoms Cardiovascular: Reports: No Symptoms Endocrine: Reports: No Symptoms GI/Abdominal: Reports: Abdominal Pain, Nausea, Vomiting : Reports: Dysuria, Flank Pain, Frequency, Urgency Musculoskeletal: Reports: No Symptoms Skin: Reports: No Symptoms Neurological: Reports: Headache Psychiatric: Reports: No Symptoms Hematologic/Lymphatic: Reports: No Symptoms Immunologic: Reports: No Symptoms ED EXAM, GENERAL - Physical Exam Exam: See Below Exam Limited By: No Limitations General Appearance: Alert, Anxious, Mild Distress Eye Exam: Bilateral Eye: EOMI, PERRL Throat/Mouth: Normal Inspection, Normal Lips, Normal Oropharynx, Normal Voice, No Airway Compromise Head: Atraumatic, Normocephalic Neck: Normal Inspection, Supple, Non-Tender, Full Range of Motion. No: Lymphadenopathy (R), Lymphadenopathy (L) Respiratory/Chest: No Respiratory Distress, Lungs Clear, Normal Breath Sounds Cardiovascular: Normal Peripheral Pulses, Regular Rate, Rhythm, No Murmur, Tachycardia (Borderline tachycardia) Peripheral Pulses: 2+: Radial (L), Radial (R), Posterior Tibial (L), Posterior Tibial (R) GI/Abdominal: Normal Bowel Sounds, Soft, Non-Tender, No Organomegaly, No Distention Back Exam: Normal Inspection, Full Range of Motion, CVA Tenderness (L) Extremities: Normal Inspection, Normal Range of Motion, No Pedal Edema, Normal Capillary Refill Neurological: Alert, Oriented, Normal Cognition, No Motor/Sensory Deficits Psychiatric: Normal Affect, Normal Mood Skin Exam: Warm, Dry, Intact, Normal Color Lymphatic: No Adenopathy Course - Vital Signs Last Recorded V/S: Last Vital Signs Temp 36.3 C 01/10/21 18:26 Pulse 97 01/10/21 18:26 Resp 16 01/10/21 18:26 BP 137/78 01/10/21 18:26 Pulse Ox 97 01/10/21 18:26 - Orders/Labs/Meds Orders: Active Orders 24 hr Category Date Time Status BASIC METABOLIC PANEL,BMP [CHEM] Stat Lab 01/10/21 18:34 Received CRP [C-REACTIVE PROTEIN] [CHEM] Stat Lab 01/10/21 18:34 Received CULTURE URINE [RM] Stat Lab 01/10/21 18:31 Received LACTIC ACID [CHEM] Stat Lab 01/10/21 18:34 Received Sodium Chloride 0.9% [Normal Saline] 1,000 ml Med 01/10/21 18:30 Active IV ASDIRECTED Sodium Chloride 0.9% [Saline Flush] Med 01/10/21 18:25 Active 10 ml FLUSH ASDIRECTED PRN Saline Lock Insert [OM.PC] Routine Oth 01/10/21 18:25 Ordered Medication Orders Sodium Chloride (Normal Saline) 1,000 mls @ 999 mls/hr IV ASDIRECTED TRUE Sodium Chloride (Sodium Chloride 0.9% 10 Ml Syringe) 10 ml FLUSH ASDIRECTED PRN PRN Reason: Keep Vein Open Labs: Laboratory Tests 01/10/21 01/10/21 Range/Units 18:31 18:34 WBC 11.2 H (4.5-11.0) K/uL RBC 4.08 (3.30-5.50) M/uL Hgb 11.9 L (12.0-15.0) g/dL Hct 35.9 L (36.0-48.0) % MCV 88 (80-98) fL MCH 29 (27-31) pg MCHC 33 (32-36) % Plt Count 322 (150-400) K/uL Neut % (Auto) 52.8 (36-66) % Lymph % (Auto) 36.9 (24-44) % [place] % (Auto) 8.3 H (2-6) % Eos % (Auto) 1.5 L (2-4) % Baso % (Auto) 0.5 (0-1) % Urine Color Yellow (YELLOW) Urine Appearance Cloudy A (CLEAR) Urine pH 5.0 (5.0-8.0) Ur Specific [place] >= 1.030 (1.008-1.030) Urine Protein Negative (NEGATIVE) mg/dL Urine Glucose (UA) Negative (NEGATIVE) mg/dL Urine Ketones Trace H (NEGATIVE) mg/dL Urine Occult Blood Negative (NEGATIVE) Urine Nitrite Negative (NEGATIVE) Urine Bilirubin Negative (NEGATIVE) Urine Urobilinogen 0.2 (0.2-1.0) EU/dL Ur Leukocyte Esterase Small H (NEGATIVE) Urine RBC 0-5 (0-5) Urine WBC 10-20 H (0-5) Ur Epithelial Cells Rare Amorphous Sediment Not seen Urine Bacteria Moderate Urine Mucus Not seen Meds: Medications Generic Name Dose Route Start Last Admin Trade Name Freq PRN Reason Stop Dose Admin Sodium Chloride 1,000 mls @ 999 mls/hr 01/10/21 18:30 Normal Saline IV ASDIRECTED TRUE Sodium Chloride 10 ml 01/10/21 18:25 Sodium Chloride 0.9% 10 Ml Syringe FLUSH ASDIRECTED PRN Keep Vein Open Discontinued Medications Generic Name Dose Route Start Last Admin Trade Name Freq PRN Reason Stop Dose Admin Ondansetron HCl 4 mg 01/10/21 18:25 Ondansetron 4 Mg/2 Ml Sdv IVPUSH 01/10/21 18:26 ONETIME ONE - Re-Assessments/Exams Free Text/Narrative Re-Assessment/Exam: 01/10/21 19:24 I reviewed the patient's labs showing a leukocytosis of 11.2 with a hemoglobin of 11.9 and hematocrit of 35.9. Her platelet count is 322,000. Her basic metabolic profile is normal with a sodium of 142, potassium of 4.5, a chloride of 104 with a bicarbonate of 27, BUN of 18 with a creatinine of 1.0, and a GFR calculated at 58. Her glucose is 83. Her CRP is less than 0.05 and her lactate is 1.5. Urinalysis shows small leukocyte esterase with 0-5 RBCs and 10-20 WBCs. Urine is somewhat concentrated with a specific gravity of 1.030. There was no hematuria noted. The patient has numerous allergies including amoxicillin/penicillin, cephalosporins, ciprofloxacin, doxycycline, erythromycin, tetracycline, and sulfa medications. In reviewing up-to-date, the recommendation is to use vancomycin 1400 mg every 8 hours IV and imipenem 500 mg every 6 hours IV. We will initiate these now. The urine culture has been sent and is currently pending. We currently do not have any beds available at our hospital so I will need to arrange for admission elsewhere. I discussed the case with Dr. Walton from [facility] who accepts the patient in admission to their hospital for inpatient IV antibiotic care. Departure - Departure Time of Disposition: 19:32 Disposition: DC/Tfer to [facility] Clinical Impression: Complicated UTI (urinary tract infection), Pyelonephritis of left kidney - Discharge Information Referrals: Alden Bui, [employer] [Primary Care Provider] - Forms: ED Department Discharge Sepsis Event Note (ED) - Evaluation Sepsis Screening Result: Possible Sepsis Risk - Focused Exam Vital Signs: Vital Signs Temp Pulse Resp BP Pulse Ox 01/10/21 18:26 36.3 C 97 16 137/78 97 01/10/21 18:18 36.3 C 97 16 137/78 97 - Problem List & Annotations (1) Complicated UTI (urinary tract infection) SNOMED Code(s): 30845113 Code(s): N39.0 - URINARY TRACT INFECTION, SITE NOT SPECIFIED Status: Acute Priority: Medium Current Visit: Yes (2) Pyelonephritis of left kidney SNOMED Code(s): 16866281 Code(s): N12 - TUBULO-INTERSTITIAL NEPHRITIS, NOT SPCF ACUTE OR CHRONIC Status: Acute Priority: Medium Current Visit: Yes - Problem List Review Problem List Initiated/Reviewed/Updated: Yes - My Orders Last 24 Hours: My Active Orders 01/10/21 18:25 Sodium Chloride 0.9% [Saline Flush] 10 ml FLUSH ASDIRECTED PRN Saline Lock Insert [OM.PC] Routine 01/10/21 18:30 Sodium Chloride 0.9% [Normal Saline] 1,000 ml IV ASDIRECTED 01/10/21 18:31 CULTURE URINE [RM] Stat 01/10/21 18:34 BASIC METABOLIC PANEL,BMP [CHEM] Stat CRP [C-REACTIVE PROTEIN] [CHEM] Stat LACTIC ACID [CHEM] Stat - Assessment/Plan Last 24 Hours: My Active Orders 01/10/21 18:25 Sodium Chloride 0.9% [Saline Flush] 10 ml FLUSH ASDIRECTED PRN Saline Lock Insert [OM.PC] Routine 01/10/21 18:30 Sodium Chloride 0.9% [Normal Saline] 1,000 ml IV ASDIRECTED 01/10/21 18:31 CULTURE URINE [RM] Stat 01/10/21 18:34 BASIC METABOLIC PANEL,BMP [CHEM] Stat CRP [C-REACTIVE PROTEIN] [CHEM] Stat LACTIC ACID [CHEM] Stat
[2021-01-10] MEDS ORDERED: Meropenem 1 GM in Sodium Chloride 0.9% 100 ML IV ONE (19:34)
[2021-01-10] MEDS ORDERED: Vancomycin 1.4 GM in Sodium Chloride 0.9% 250 ML IV SCH (20:00)
== END 2021-01-10 20:15 ==
LOC: JP.ED 18:06
DX: N39.0 Urinary tract infection, site not specified (principal); N12 Tubulo-interstitial nephritis, not specified as acute or chronic; I10 Essential (primary) hypertension; J44.9 Chronic obstructive pulmonary disease, unspecified; E11.9 Type 2 diabetes mellitus without complications; E03.9 Hypothyroidism, unspecified; Z88.0 Allergy status to penicillin; Z91.030 Bee allergy status; Z88.1 Allergy status to other antibiotic agents; Z88.2 Allergy status to sulfonamides; Z79.82 Long term (current) use of aspirin; Z79.84 Long term (current) use of oral hypoglycemic drugs; Z79.899 Other long term (current) drug therapy
CPT/HCPCS: 36415; 80048; 81001; 83605; 85025; 86140; 87086; 96365; 96368; 96375; 99285; J2185; J2405; J3370; J7030; J7050

== ENCOUNTER 2021-02-06 17:13 | Emergency (ER) | payer MEDICARE ==
[2021-02-06] MEDS ORDERED: LORazepam 2 MG/ML SDV IM PRN (18:09)
--- NOTE | 2021-02-06 18:12 | EDM.PDOCBH ---
ED HPI GENERAL MEDICAL PROBLEM - General Chief Complaint: Behavioral/Psych Stated Complaint: EVAL Time Seen by Provider: 02/06/21 18:04 Source of Information: Reports: Patient, RN Notes Reviewed History Limitations: Reports: No Limitations - History of Present Illness INITIAL COMMENTS - FREE TEXT/NARRATIVE: 65-year-old female presents emergency department day complaint of auditory hallucinations. She states she is been hearing voices they have progressively been getting worse she is also starting to see bugs. She does have some suicidal ideation states she does not live anymore would like to just walk out in front of oncoming traffic. I was recently admitted to [facility]'s has been out for about 3 weeks she states she would like to go back there she felt the care there did help. - Related Data Allergies Allergy/AdvReac Type Severity Reaction Status Date / Time amoxicillin Allergy Other Verified 02/06/21 17:43 bee venom protein (honey bee) Allergy Other Verified 02/06/21 17:43 cefuroxime [From Ceftin] Allergy Other Verified 02/06/21 17:43 ciprofloxacin Allergy Other Verified 02/06/21 17:43 doxorubicin [From Adriamycin] Allergy Other Verified 02/06/21 17:43 doxycycline Allergy Rash Verified 02/06/21 17:43 erythromycin base Allergy Other Verified 02/06/21 17:43 Penicillins Allergy Other Verified 02/06/21 17:43 prednisone Allergy Abdominal Verified 02/06/21 17:43 Pain tetracycline Allergy Other Verified 02/06/21 17:43 trimethoprim [From Bactrim] Allergy Other Verified 02/06/21 17:43 Home Meds: Home Meds Acetaminophen [Tylenol Extra Strength] 1,000 mg PO TID PRN 02/18/18 [History] Aspirin 81 mg PO DAILY 02/18/18 [History] Budesonide/Formoterol [Symbicort 160-4.5 MCG] 2 puff INH BID 02/18/18 [History] Calcium Carbonate/Vitamin D3 [Calcium 600 + Vit D Tablet] 1 tab PO BID 02/18/18 [History] DULoxetine [Cymbalta] 60 mg PO BID 02/18/18 [History] EPINEPHrine [Epinephrine] 0.3 mg SQ ASDIRECTED PRN 02/18/18 [History] Prazosin HCl [Prazosin] 2 cap PO BEDTIME 02/18/18 [History] hydrOXYzine pamoate [Hydroxyzine Pamoate] 50 mg PO TID 02/18/18 [History] metFORMIN HCl [Metformin HCl] 1,000 mg PO BID 02/18/18 [History] polyethylene glycoL 3350 [Miralax] 17 gm PO DAILY 02/18/18 [History] Levothyroxine 100 mcg PO DAILY 04/07/18 [History] Ondansetron [Zofran ODT] 4 mg PO Q8H PRN 04/07/18 [History] Cyanocobalamin (Vitamin B-12) [Vitamin B-12] 500 mcg PO DAILY 04/09/18 [History] busPIRone [Buspar] 30 mg PO BID 06/03/18 [History] cloZAPine 75 mg PO BEDTIME 06/03/18 [History] Benztropine [Cogentin] 1 mg PO QPM 04/01/19 [History] Fluticasone Propionate [Flonase] 2 spray RANDY DAILY 04/01/19 [History] Gabapentin [Neurontin] 600 mg PO TID 04/01/19 [History] Naproxen 500 mg PO BID PRN 04/01/19 [History] Simethicone 125 mg CHEW QID 04/01/19 [History] Cholecalciferol (Vitamin D3) [Vitamin D3] 2,000 unit PO DAILY 04/05/19 [History] Omeprazole 20 mg PO BID 04/05/19 [History] traZODone HCl [Trazodone HCl] 100 mg PO BEDTIME 10/10/19 [History] Diclofenac Sodium [Voltaren 1% Gel] 4 gm TOP QID PRN 10/26/19 [History] Ferrous Sulfate 325 mg PO DAILY 10/26/19 [History] Meclizine HCl [Travel Sickness] 12.5 mg PO TID PRN 10/26/19 [History] methocarbamoL [Robaxin] 500 mg PO TID PRN 10/26/19 [History] Dulaglutide [Trulicity] 0.75 mg SQ WEEKLY 12/23/20 [History] Loratadine 1 tab PO DAILY 12/23/20 [History] Prazosin [Minpress] 1 cap PO BEDTIME 12/23/20 [History] amLODIPine [Norvasc] 5 mg PO DAILY 30 Days #30 tab 12/23/20 [Rx] traZODone 0.5 tab PO ASDIRECTED PRN 12/23/20 [History] OLANZapine [ZyPREXA] 10 mg PO TID 02/06/21 [History] Past Medical History HEENT History: Reports: Allergic Rhinitis, Cataract Cardiovascular History: Reports: High Cholesterol, Hypertension Respiratory History: Reports: COPD Gastrointestinal History: Reports: Cholelithiasis, Chronic Constipation, Colon Polyp, Gastritis Genitourinary History: Reports: UTI, Recurrent STEEL TIER History: Reports: None Musculoskeletal History: Reports: Fracture, Neck Pain, Chronic, Osteoarthritis, Other (See Below) Other Musculoskeletal History: bilateral shoulder pain Neurological History: Reports: Brain Injury, Head Trauma Psychiatric History: Reports: Depression, Psychosis, PTSD, Schizophrenia, Suicide Attempt, Suicidal Ideation, Other (See Below) Other Psychiatric History: Boarderline Personality Disorder, Dissociative Disorder, Intellectual Disability Endocrine/Metabolic History: Reports: Diabetes, Type II, Hypothyroidism, Vitamin D Deficiency Hematologic History: Reports: Anemia, B12 Deficiency, Other (See Below) Other Hematologic History: Vitamin D Immunologic History: Reports: None Oncologic (Cancer) History: Reports: None Dermatologic History: Reports: None - Infectious Disease History Infectious Disease History: Reports: Chicken Pox, Mumps Other Infectious Disease History: covid vacc - Past Surgical History Head Surgeries/Procedures: Reports: None HEENT Surgical History: Reports: Oral Surgery Cardiovascular Surgical History: Reports: None Respiratory Surgical History: Reports: None GI Surgical History: Reports: Appendectomy, Cholecystectomy, Colonoscopy, EGD, Polypectomy Female Surgical History: Reports: Breast Biopsy Endocrine Surgical History: Reports: None Neurological Surgical History: Reports: C-Spine, Laminectomy, Scoliosis Musculoskeletal Surgical History: Reports: Shoulder Surgery Oncologic Surgical History: Reports: Biopsy of Breast Dermatological Surgical History: Reports: None Social & Family History - Family History Family Medical History: Unobtainable - Tobacco Use Tobacco Use Status *Q: Current Every Day Tobacco User Years of Tobacco use: 40 Packs/Tins Daily: 0.5 - Caffeine Use Caffeine Use: Reports: Soda - Recreational Drug Use Recreational Drug Use: No ED ROS GENERAL - Review of Systems Review Of Systems: See Below Constitutional: Reports: No Symptoms Respiratory: Reports: No Symptoms Cardiovascular: Reports: No Symptoms GI/Abdominal: Reports: No Symptoms Neurological: Reports: No Symptoms Psychiatric: Reports: Anxiety, Homicidal Ideation, Suicidal Ideation ED EXAM, BEHAVIORAL HEALTH - Physical Exam Exam: See Below Exam Limited By: No Limitations General Appearance: Alert, WD/WN, No Apparent Distress Respiratory/Chest: No Respiratory Distress, Lungs Clear, Normal Breath Sounds, No Accessory Muscle Use, Chest Non-Tender Cardiovascular: Regular Rate, Rhythm, No Murmur GI/Abdominal: Soft, Non-Tender Psychiatric: Alert, Depressed Mood, Suicidal Thoughts, Auditory Hallucinations, Visual Hallucinations. No: Threatening Behavior COURSE, BEHAVIORAL HEALTH COMP - Course Vital Signs: Last Vital Signs Temp 97.3 F 02/07/21 02:52 Pulse 83 02/07/21 02:52 Resp 16 02/07/21 02:52 BP 115/55 L 02/07/21 02:52 Pulse Ox 96 02/07/21 02:52 Orders, Labs, Meds: Active Orders 24 hr Category Date Time Status CULTURE URINE [RM] Urgent Lab 02/07/21 06:18 Ordered LORazepam [Ativan] Med 02/06/21 18:09 Active 1 mg IM ONETIME PRN Medication Orders Lorazepam (Lorazepam 2 Mg/Ml Sdv) 1 mg IM ONETIME PRN PRN Reason: Agitation Last Admin: 02/06/21 18:24 Dose: 1 mg Documented by: KINA Laboratory Tests 02/06/21 02/06/21 02/06/21 Range/Units 17:55 18:21 18:21 WBC 10.2 (4.5-11.0) K/uL RBC 4.15 (3.30-5.50) M/uL Hgb 11.6 L (12.0-15.0) g/dL Hct 36.5 (36.0-48.0) % MCV 88 (80-98) fL MCH 28 (27-31) pg MCHC 32 (32-36) % Plt Count 319 (150-400) K/uL Neut % (Auto) 59.1 (36-66) % Lymph % (Auto) 32.7 (24-44) % [place] % (Auto) 6.6 H (2-6) % Eos % (Auto) 0.8 L (2-4) % Baso % (Auto) 0.8 (0-1) % Sodium 141 (140-148) mmol/L Potassium 4.3 (3.6-5.2) mmol/L Chloride 105 (100-108) mmol/L Carbon Dioxide 27 (21-32) mmol/L Anion Gap 8.9 (5.0-14.0) mmol/L BUN 17 (7-18) mg/dL Creatinine 1.0 (0.6-1.0) mg/dL Est Cr Clr Drug Dosing 46.40 mL/min Estimated GFR (MDRD) 56 L (>60) Glucose 105 (74-106) mg/dL Calcium 9.5 (8.5-10.1) mg/dL Total Bilirubin 0.5 (0.2-1.0) mg/dL AST 14 L (15-37) U/L ALT 27 (12-78) U/L Alkaline Phosphatase 112 (46-116) U/L Total Protein 6.7 (6.4-8.2) g/dL Albumin 4.0 (3.4-5.0) g/dL Globulin 2.7 (2.3-3.5) g/dL Albumin/Globulin Ratio 1.5 (1.2-2.2) Urine Color (YELLOW) Urine Appearance (CLEAR) Urine pH (5.0-8.0) Ur Specific [place] (1.008-1.030) Urine Protein (NEGATIVE) mg/dL Urine Glucose (UA) (NEGATIVE) mg/dL Urine Ketones (NEGATIVE) mg/dL Urine Occult Blood (NEGATIVE) Urine Nitrite (NEGATIVE) Urine Bilirubin (NEGATIVE) Urine Urobilinogen (0.2-1.0) EU/dL Ur Leukocyte Esterase (NEGATIVE) Urine RBC (0-5) Urine WBC (0-5) Ur Epithelial Cells Amorphous Sediment Urine Bacteria Urine Mucus Urine Opiates Screen Negative (NEGATIVE) Ur Oxycodone Screen Negative (NEGATIVE) Urine Methadone Screen Negative (NEGATIVE) Ur Propoxyphene Screen Negative (NEGATIVE) Ur Barbiturates Screen Negative (NEGATIVE) Ur Tricyclics Screen Negative (NEGATIVE) Ur Phencyclidine Scrn Negative (NEGATIVE) Ur Amphetamine Screen Negative (NEGATIVE) U Methamphetamines Scrn Negative (NEGATIVE) Urine MDMA Screen Negative (NEGATIVE) U Benzodiazepines Scrn Negative (NEGATIVE) U Cocaine Metab Screen Negative (NEGATIVE) U Marijuana (THC) Screen Negative (NEGATIVE) SARS CoV-2 RNA Rapid HARJIT 02/06/21 02/06/21 Range/Units 21:48 Unknown WBC (4.5-11.0) K/uL RBC (3.30-5.50) M/uL Hgb (12.0-15.0) g/dL Hct (36.0-48.0) % MCV (80-98) fL MCH (27-31) pg MCHC (32-36) % Plt Count (150-400) K/uL Neut % (Auto) (36-66) % Lymph % (Auto) (24-44) % [place] % (Auto) (2-6) % Eos % (Auto) (2-4) % Baso % (Auto) (0-1) % Sodium (140-148) mmol/L Potassium (3.6-5.2) mmol/L Chloride (100-108) mmol/L Carbon Dioxide (21-32) mmol/L Anion Gap (5.0-14.0) mmol/L BUN (7-18) mg/dL Creatinine (0.6-1.0) mg/dL Est Cr Clr Drug Dosing mL/min Estimated GFR (MDRD) (>60) Glucose (74-106) mg/dL Calcium (8.5-10.1) mg/dL Total Bilirubin (0.2-1.0) mg/dL AST (15-37) U/L ALT (12-78) U/L Alkaline Phosphatase (46-116) U/L Total Protein (6.4-8.2) g/dL Albumin (3.4-5.0) g/dL Globulin (2.3-3.5) g/dL Albumin/Globulin Ratio (1.2-2.2) Urine Color Yellow (YELLOW) Urine Appearance Slightly cloudy A (CLEAR) Urine pH 5.0 (5.0-8.0) Ur Specific [place] 1.025 (1.008-1.030) Urine Protein Negative (NEGATIVE) mg/dL Urine Glucose (UA) Negative (NEGATIVE) mg/dL Urine Ketones Negative (NEGATIVE) mg/dL Urine Occult Blood Negative (NEGATIVE) Urine Nitrite Negative (NEGATIVE) Urine Bilirubin Small H (NEGATIVE) Urine Urobilinogen 0.2 (0.2-1.0) EU/dL Ur Leukocyte Esterase Trace H (NEGATIVE) Urine RBC 0-5 (0-5) Urine WBC 10-20 H (0-5) Ur Epithelial Cells Rare Amorphous Sediment Not seen Urine Bacteria Rare Urine Mucus Not seen Urine Opiates Screen (NEGATIVE) Ur Oxycodone Screen (NEGATIVE) Urine Methadone Screen (NEGATIVE) Ur Propoxyphene Screen (NEGATIVE) Ur Barbiturates Screen (NEGATIVE) Ur Tricyclics Screen (NEGATIVE) Ur Phencyclidine Scrn (NEGATIVE) Ur Amphetamine Screen (NEGATIVE) U Methamphetamines Scrn (NEGATIVE) Urine MDMA Screen (NEGATIVE) U Benzodiazepines Scrn (NEGATIVE) U Cocaine Metab Screen (NEGATIVE) U Marijuana (THC) Screen (NEGATIVE) SARS CoV-2 RNA Rapid HARJIT Negative Medications Generic Name Dose Route Start Last Admin Trade Name Freq PRN Reason Stop Dose Admin Lorazepam 1 mg 02/06/21 18:09 02/06/21 18:24 Lorazepam 2 Mg/Ml Sdv IM 1 mg ONETIME PRN Administration Agitation Departure - Departure Time of Disposition: 06:19 Disposition: DC/Tfer to Psych Hosp/Unit [facility] Condition: Poor Clinical Impression: Auditory hallucination, Suicidal ideation - Discharge Information Referrals: Alden Bui MATERIAL ENGINEER [Primary Care Provider] - Forms: ED Department Discharge Sepsis Event Note (ED) - Evaluation Sepsis Screening Result: No Definite Risk - Focused Exam Vital Signs: Vital Signs Temp Pulse Resp BP Pulse Ox 02/07/21 02:52 97.3 F 83 16 115/55 L 96 - My Orders Last 24 Hours: My Active Orders 02/06/21 18:09 LORazepam [Ativan] 1 mg IM ONETIME PRN 02/07/21 06:18 CULTURE URINE [RM] Urgent - Assessment/Plan Last 24 Hours: My Active Orders 02/06/21 18:09 LORazepam [Ativan] 1 mg IM ONETIME PRN 02/07/21 06:18 CULTURE URINE [RM] Urgent Plan: Assessment Acuity = acute Site and laterality = suicidal ideation with hallucinations complicated patient with history of schizophrenia Etiology = unknown Manifestations = none Location of injury = Home Lab values = CBC, CMP unremarkable urinalysis does have 10-20 WBCs consistent with pyuria however she is asymptomatic urine cultures pending, Covid test was negative urine drug screen negative Plan Did receive acceptance [facility]'s Dr. Woody will be transported this morning for further evaluation and treatment This note was dictated using [employer] voice recognition software please call with any questions on syntax or grammar.
== END 2021-02-07 09:22 ==
LOC: JP.ED 17:13
DX: R44.0 Auditory hallucinations (principal); R45.851 Suicidal ideations; I10 Essential (primary) hypertension; J44.9 Chronic obstructive pulmonary disease, unspecified; M19.90 Unspecified osteoarthritis, unspecified site; E11.9 Type 2 diabetes mellitus without complications; E03.9 Hypothyroidism, unspecified; D64.9 Anemia, unspecified; Z72.0 Tobacco use; Z88.0 Allergy status to penicillin; Z91.030 Bee allergy status; Z88.1 Allergy status to other antibiotic agents; Z88.8 Allergy status to other drugs, medicaments and biological substances; Z79.82 Long term (current) use of aspirin; Z79.84 Long term (current) use of oral hypoglycemic drugs; Z79.899 Other long term (current) drug therapy; Z20.822 Contact with and (suspected) exposure to COVID-19
CPT/HCPCS: 36415; 80053; 80305; 81001; 85025; 87086; 96372; 99285; J2060; U0002